=== PATIENT | male | born 1980 | race Caucasian/White ===

== ENCOUNTER 2023-10-12 15:55 | Emergency (ER) | payer BC, SELFPAY ==
--- NOTE | 2023-10-12 16:00 | DI.RAD_ITS ---
Exam(s) XR KNEE LT 3V AP,LAT,KWESI EXAM: XR KNEE LT 3V AP,LAT,KWESI CLINICAL HISTORY: pain. TECHNIQUE: 2D digital imaging was performed. COMPARISON: No exams were available for comparison FINDINGS: 3 views No evidence of acute fracture or prominent joint effusion. Bone density normal. No osseous lesions nor obvious degenerative changes. IMPRESSION: No acute osseous findings in the knee. DATA REPOSITORY: RADIATION DOSE DELIVERED:
--- NOTE | 2023-10-12 16:00 | DI.RAD_ITS ---
Exam(s) XR TIB/FIB LT EXAM: XR TIB/FIB LT CLINICAL HISTORY: pain. TECHNIQUE: 2D digital imaging was performed. COMPARISON: No exams were available for comparison FINDINGS: 3 views No evidence of acute fracture. Bone density normal. No osseous lesions. No radiopaque foreign bodi es. Please note that the most inferior tip of the lateral malleolus is not included in the field of view and if there is pain over this area then dedicated ankle images would be recommended. IMPRESSION: As above. DATA REPOSITORY: RADIATION DOSE DELIVERED:
[2023-10-12 16:02] VITALS: BP 197/103; PULSE 120; RESP 18; TEMP 37.5; O2SAT 94
[2023-10-12 16:10] VITALS: BP 197/103; PULSE 120; RESP 18; TEMP 37.5; O2SAT 94
--- NOTE | 2023-10-12 16:16 | W.ED.GENAD ---
Discharge Plan Disposition Patient Disposition: Home Condition: Stable Discharge Details Clinical Impression: Cellulitis of left leg Primary Care Provider: Jennifer Arreguin ED Provider: Daryl Newman Home Meds and New Rx's Prescriptions: New amoxicillin-pot clavulanate 875-125 mg tablet 1 tab PO BID Qty: 14 0RF Continued fluticasone propionate [Flonase Allergy Relief] 50 mcg/actuation spray,suspension 1 spray intranasal DAILY PRN Rx Instructions: administer into each nostril loratadine [Claritin] 10 mg tablet 10 mg PO DAILY PRN omeprazole magnesium [Prilosec OTC] 20 MG tablet,delayed release (DR/EC) 20 mg PO DAILY@0730 PRN Patient Comments: Pt took it a couple of days ago but doesn't take it often Discharge Instructions Additional Instructions: You have an infection of the skin of your left leg. Take the antibiotic as prescribed starting tomorrow morning Follow-up with your primary care provider within 1 week especially if not improving If you feel more ill, have severe worsening pain or your knee becomes red and swollen and painful with motion return to the emergency department for reevaluation HPI General Mode of arrival: ambulatory. Date/Time Provider Initiated Documentation: 10/12/23 15:58. Limitations to Documentation: no limitations. Information obtained by: patient. History of Present Illness 42 year old M presents to the emergency department with the chief complaint of Left leg wound, described as moderate, Patient started experiencing this day(s) (14) and it has been constant. No relieving factors improve symptom(s), No exacerbating factors reported . Patient notes fever/chills. Patient did receive the following treatments prior to arrival, none Related Data Home Medications Medication Instructions Recorded Confirmed omeprazole magnesium 20 mg 20 mg PO DAILY@0730 PRN 02/21/13 10/12/23 tablet,delayed release (Prilosec OTC) fluticasone propionate 50 1 spray intranasal DAILY PRN 01/11/23 10/12/23 mcg/actuation nasal spray,suspension (Flonase Allergy Relief) loratadine 10 mg tablet (Claritin) 10 mg PO DAILY PRN 01/11/23 10/12/23 amoxicillin 875 mg-potassium 1 tab PO BID #14 tabs 10/12/23 clavulanate 125 mg tablet Previous Rx's Medication Instructions Recorded amoxicillin 875 mg-potassium 1 tab PO BID #14 tabs 10/12/23 clavulanate 125 mg tablet Allergies Allergy/AdvReac Type Severity Reaction Status Date / Time aspirin Allergy Unknown unknown Unverified 10/12/23 16:07 General Stated Complaint: Cellulitis SHAHIDA: 3 Review of Systems All systems reviewed & are unremarkable except as noted in HPI and below Constitutional Constitutional: Denies chills, Reports fever(s) and Denies weakness Cardiovascular Cardiovascular: Denies chest pain and Denies dyspnea Respiratory Respiratory: Denies cough and Denies dyspnea Gastrointestinal Gastrointestinal: Denies abdominal pain, Denies nausea and Denies vomiting Musculoskeletal Musculoskeletal: Denies joint swelling Integumentary/Breasts Skin/Breast: Reports erythema Neurologic Neurologic: Denies weakness Exam Const General: no acute distress Orientation: alert HENMT Head: normal to inspection Ears: external ears normal General nose exam: external nose normal Mouth: moist mucous membranes Eyes General: appearance normal, both eyes and all related structures Neck Neck: normal visual inspection Resp Effort & Inspection: normal respiratory effort and able to speak in complete sentences Cardio Rate: regular rate Skin General skin exam: erythema Neuro General: patient alert and patient oriented x3 Extrem General: full ROM and capillary refill normal Psych Mental Status: mental status grossly normal Course Vital Signs Vital signs: Vital Signs Temperature 37.5 C 10/12/23 16:02 Pulse 120 H 10/12/23 16:02 Respiratory Rate 18 10/12/23 16:02 Blood Pressure 197/103 H 10/12/23 16:02 Pulse Oximetry 94 10/12/23 16:02 Temperature 37.5 C 10/12/23 16:10 Temperature Source Skin 10/12/23 16:10 Pulse 120 H 10/12/23 16:10 Respiratory Rate 18 10/12/23 16:10 Respiratory Effort Normal, Non-Labored 10/12/23 16:07 Blood Pressure 197/103 H 10/12/23 16:10 Blood Pressure Position Sitting 10/12/23 16:10 Pulse Oximetry 94 10/12/23 16:10 Oxygen Delivery Method Room Air 10/12/23 16:10 Oxygen Flow Rate 0 10/12/23 16:10 Medical Decision Making 42-year-old male comes in with left leg redness and pain. He says 2 weeks ago he sustained a wound on the anterior left mid tibia after he cut it on an unknown object. Has any IV drug use, states the pain started yesterday, and today had a fever of 103 so came here after taking Tylenol. He is in no distress on exam speaking clearly alert oriented x 4. He has a 1 cm open wound on the left mid tibia with no current drainage, there is erythema extending proximally from the wound approximately 4 to 5 cm. There is no fluctuance, no crepitus he has full range of motion of the knee and foot with intact sensation. There is no redness of the knee itself. Suspect cellulitis, will obtain CBC, CMP, lactate, procalcitonin and obtain x-rays of the knee and tib-fib, though concern for necrotizing fascitits versus septic joint is very low based on exam. Labs show white count of 13, unremarkable CMP, lactate negative, procalcitonin is 0.8. X-ray is unremarkable, no effusion of the knee. Patient is stable and feels well, discussed admission versus discharge with outpatient follow-up and he prefers this, given stable vital signs feels it is reasonable. He was given strict return precautions. Differential Diagnosis Differential Diagnosis: Cellulitis, sepsis Imaging Data Radiologic Study: Attestation: I personally reviewed and interpreted this imaging study as follows: Imaging: X-Ray Radiologist's impression: No acute findings on tib-fib x-ray Radiologic Study #2: Attestation: I personally reviewed and interpreted this imaging study as follows: Imaging: X-Ray Radiologist's impression: No acute findings on the knee x-ray Lab Data Lab results reviewed: Yes I reviewed the patient's lab results. Quality:SDOH Health Related Social Needs: No Data to Display PFSH All Active Problems (Updated 10/12/23 @ 18:11 by Daryl Newman MD) Cellulitis of left leg (Acute) Elevated blood pressure reading in office without diagnosis of hypertension (Acute) Family History (Updated 01/11/23 @ 10:32 by Jennifer Arreguin NP) Mother Personal history of malignant neoplasm PANCREATIC Father Alcohol use disorder Passed at age 61 Grandmother Personal history of malignant neoplasm PANCREATIC Stroke Social History (Updated 01/12/23 @ 12:46 by Tiffany Waller) Smoking/Tobacco Use Status: Former Tobacco Use tobacco type: smokeless tobacco Tobacco: How many years used: 15 Smokeless tobacco user: chewing tobacco Quit status: has quit before Second Hand Exposure: Yes Smoking risk assessment performed?: Yes Alcohol Intake: current Alcohol Intake frequency: a few times a week Alcohol type: beer Drug use: Never Household members: spouse and children Pets and animals: Yes Pets and animals: dog(s) and other Do you think of yourself as: straight/heterosexual Current gender identity: male What is your relationship status?: How often do you talk on the phone with friends or family?: once per week How often do you get together with friends or relatives?: twice per week Do you belong to any clubs or organized social groups?: yes Panel score (0-1 are the most socially isolated patients): 3 What type of physical activity do you participate in: other 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
[2023-10-12 16:33] LABS: Lactate 1.2 mmol/L (0.6-1.4)
[2023-10-12 16:34] LABS: Abs Immature Grans 0.06 10^3/uL (0.0-0.06); Basophils % 0.1; HCT 43.5 % (40.0-50.0); HGB 15.2 g/dL (13.5-17.5); Immature Grans % 0.4; Lymphocytes % 4.9; MCH 30.6 pg (27.0-33.0); MCHC 34.9 % (32.0-36.0); MCV 88 fL (80-95); MPV 9.1 fL (8.0-11.0); Monocytes % 5.5; Neutrophils % 89.1; Platelet Count 194 10^3/uL (130-400); RBC 4.97 10^6/uL (4.36-5.78); RDW 12.2 % (11.8-14.1); RDW-SD 39.2 fL; WBC 13.54 10^3/uL (4.4-10.8)
[2023-10-12] MEDS: Normal Saline 1,000 ML 1000 ML IV (16:35)
[2023-10-12] MEDS: cefTRIAXone 2 GM/50 ML BAG IVPB (16:38)
[2023-10-12 16:39] LABS: Absolute Basophil Count 0.01 10^3/uL (0.0-0.2); Absolute Lymphocyte Count 0.66 10^3/uL (1.2-3.4); Absolute Monocyte Count 0.74 10^3/uL (0.1-0.8); Absolute Neutrophil Count 12.06 10^3/uL (1.2-6.7)
[2023-10-12 16:51] LABS: ALT 53 U/L (16-63); AST 22 U/L (15-37); Albumin 3.7 g/dL (3.4-5.0); Alkaline Phosphatase 62 U/L (46-116); Anion Gap 11.5 mmol/L (3-11); BUN 13 mg/dL (7-18); Bilirubin, Total 1.7 mg/dL (0.2-1.0); CO2 24.5 mmol/L (21.0-32.0); Calcium 9.2 mg/dL (8.5-10.1); Chloride 100 mmol/L (98-107); Estimated GFR 95.77 (mL/min/1.73m2); Glucose 111 mg/dL (74-106); Magnesium 1.8 mg/dL (1.8-2.4); Potassium 3.7 mmol/L (3.5-5.1); Sodium 136 mmol/L (136-145); Total Protein 7.7 g/dL (6.4-8.2)
[2023-10-12 17:14] VITALS: TEMP 37.7
[2023-10-12 17:19] LABS: Procalcitonin 0.8 ng/mL
[2023-10-12 17:35] VITALS: BP 141/79; PULSE 92; O2SAT 93
[2023-10-12 18:20] VITALS: BP 138/75; PULSE 90; RESP 15; O2SAT 99
== END 2023-10-12 18:25 | disposition home or self-care (01) ==
PROVIDERS: Emergency Provider Emergency Medicine; PCP Nurse Practitioner Family
DX: M25.562 Pain in left knee; W26.9XXA Contact with unspecified sharp object(s), initial encounter; L03.116 Cellulitis of left lower limb
CPT/HCPCS: 36415; 73562; 80053; 84145; 96365; 99284; 73590; 83605; 83735; 85025; 99283; J0696

== ENCOUNTER 2023-10-17 15:37 | Emergency (ER) | payer BC, SELFPAY ==
[2023-10-17] VITALS (8 sets, daily range): BP systolic 129–144; BP diastolic 72–83; PULSE 72–88; RESP 16–18; TEMP 36.4–37.7; O2SAT 94–97
[2023-10-17 17:23] LABS: Abs Immature Grans 0.15 10^3/uL (0.0-0.06); Absolute Eosinophil Count 0.14 10^3/uL (0.0-0.7); Absolute Lymphocyte Count 1.67 10^3/uL (1.2-3.4); Absolute Monocyte Count 1.03 10^3/uL (0.1-0.8); Basophils % 0.3; Eosinophils % 1.2; HCT 44.4 % (40.0-50.0); HGB 15.5 g/dL (13.5-17.5); Immature Grans % 1.3; Lymphocytes % 14.3; MCH 30.3 pg (27.0-33.0); MCHC 34.9 % (32.0-36.0); MCV 87 fL (80-95); MPV 8.6 fL (8.0-11.0); Monocytes % 8.8; Neutrophils % 74.1; Platelet Count 344 10^3/uL (130-400); RBC 5.11 10^6/uL (4.36-5.78); RDW 11.8 % (11.8-14.1); RDW-SD 37.9 fL; WBC 11.66 10^3/uL (4.4-10.8)
[2023-10-17 17:24] LABS: Absolute Basophil Count 0.03 10^3/uL (0.0-0.2); Absolute Neutrophil Count 8.64 10^3/uL (1.2-6.7)
[2023-10-17] MEDS: Normal Saline 1,000 ML 1000 ML IV (17:25)
[2023-10-17 17:38] LABS: ALT 75 U/L (16-63); AST 35 U/L (15-37); Albumin 3.5 g/dL (3.4-5.0); Alkaline Phosphatase 70 U/L (46-116); Anion Gap 8.9 mmol/L (3-11); BUN 14 mg/dL (7-18); Bilirubin, Total 0.8 mg/dL (0.2-1.0); CO2 27.1 mmol/L (21.0-32.0); CREATININE 0.9 mg/dL (0.70-1.30); Calcium 9.7 mg/dL (8.5-10.1); Chloride 102 mmol/L (98-107); Estimated GFR 108.68 (mL/min/1.73m2); Glucose 93 mg/dL (74-106); Potassium 3.9 mmol/L (3.5-5.1); Sodium 138 mmol/L (136-145); Total Protein 8.7 g/dL (6.4-8.2)
--- NOTE | 2023-10-17 17:42 | W.ED.GENAD ---
Discharge Plan Disposition Patient Disposition: Home Condition: Stable Discharge Details Clinical Impression: Cellulitis of left lower extremity Primary Care Provider: Jennifer Arreguin ED Provider: Jhonny Lerner Home Meds and New Rx's Prescriptions: New clindamycin HCl 300 mg capsule 300 mg PO QID 7 Days Qty: 28 0RF No Action fluticasone propionate [Flonase Allergy Relief] 50 mcg/actuation spray,suspension 1 spray intranasal DAILY PRN Rx Instructions: administer into each nostril loratadine [Claritin] 10 mg tablet 10 mg PO DAILY PRN omeprazole magnesium [Prilosec OTC] 20 MG tablet,delayed release (DR/EC) 20 mg PO DAILY@0730 PRN Patient Comments: Pt took it a couple of days ago but doesn't take it often amoxicillin-pot clavulanate 875-125 mg tablet 1 tab PO BID Qty: 14 0RF Discharge Instructions Instructions: Cellulitis (ED) Additional Instructions: Please return to the emerged part for any worsening symptoms. HPI General Date/Time Provider Initiated Documentation: 10/17/23 15:57. HPI Narrative: 42-year-old male presents with worsening cellulitis of his left lower extremity, over 1 week ago nicked his left salgado on a piece of equipment. Was started on antibiotic several days ago, worsening redness has also experienced fevers and chills. Related Data Home Medications Medication Instructions Recorded Confirmed omeprazole magnesium 20 mg 20 mg PO DAILY@0730 PRN 02/21/13 10/17/23 tablet,delayed release (Prilosec OTC) fluticasone propionate 50 1 spray intranasal DAILY PRN 01/11/23 10/17/23 mcg/actuation nasal spray,suspension (Flonase Allergy Relief) loratadine 10 mg tablet (Claritin) 10 mg PO DAILY PRN 01/11/23 10/17/23 amoxicillin 875 mg-potassium 1 tab PO BID #14 tabs 10/12/23 10/17/23 clavulanate 125 mg tablet clindamycin HCl 300 mg capsule 300 mg PO QID 7 days #28 caps 10/17/23 Previous Rx's Medication Instructions Recorded amoxicillin 875 mg-potassium 1 tab PO BID #14 tabs 10/12/23 clavulanate 125 mg tablet clindamycin HCl 300 mg capsule 300 mg PO QID 7 days #28 caps 10/17/23 Allergies Allergy/AdvReac Type Severity Reaction Status Date / Time aspirin Allergy Unknown unknown Unverified 10/17/23 15:39 General Stated Complaint: Cellulitis SHAHIDA: 3 Review of Systems Narrative: Review of Systems Constitutional: negative Eyes: negative ENT: negative Cardiovascular: negative Respiratory: negative Gastrointestinal: negative : negative Musculoskeletal: negative Skin: Lower extremity cellulitis Neurologic: negative Psych: negative Exam Narrative Exam Narrative: Physical Examination General: alert, awake, cooperative, resting comfortably, no acute distress HEENT: normocephalic, atraumatic; PERRL, EOM intact, conjunctiva normal; no nasal discharge; moist mucous membranes, oral and pharyngeal mucosa normal, tolerating secretions Neck: supple, trachea midline; full ROM Chest: normal to inspection Respiratory: normal respiratory effort, speaking in full sentences, clear to auscultation, no wheezing, rales or rhonchi Cardiac: regular rate, regular rhythm, S1S2 intact, no murmurs rubs or gallops GI: abdomen soft, non-tender, non-distended; no palpable mass or hepatosplenomegaly Skin: Large area of erythema and induration left lower extremity involving anterior salgado extending up medial aspect of left thigh, no crepitus no bulla, no fluctuance appreciated, appears to be stemming from anterior salgado skin deformity subacute in nature Neuro: AAOx3, normal speech, moving all extremities Extremities: See skin Psych: Appropriate mood and affect Course Vital Signs Vital signs: Vital Signs Temperature 36.4 C L 10/17/23 15:42 Pulse 88 10/17/23 15:42 Respiratory Rate 16 10/17/23 15:42 Blood Pressure 139/72 10/17/23 15:42 Pulse Oximetry 97 10/17/23 15:42 Temperature 36.4 C L 10/17/23 15:42 Temperature Source Temporal Artery Scan 10/17/23 15:42 Pulse 88 10/17/23 15:42 Respiratory Rate 16 10/17/23 15:42 Respiratory Effort Normal, Non-Labored 10/17/23 15:44 Blood Pressure 139/72 10/17/23 15:42 Blood Pressure Position Sitting 10/17/23 15:42 Pulse Oximetry 97 10/17/23 15:42 Oxygen Delivery Method Room Air 10/17/23 15:42 Oxygen Flow Rate 0 10/17/23 15:42 Pain Level 9 10/17/23 15:42 Lab/Test Results Lab/Test Results: 10/17/23 17:17 Blood Blood Culture - Pending 10/17/23 17:07 Blood Blood Culture - Pending Laboratory Tests Range/Units 10/17/23 17:17 WBC (4.4-10.8) 10^3/uL 11.66 H RBC (4.36-5.78) 10^6/uL 5.11 Hgb (13.5-17.5) g/dL 15.5 Hct (40.0-50.0) % 44.4 MCV (80-95) fL 87 MCH (27.0-33.0) pg 30.3 MCHC (32.0-36.0) % 34.9 RDW (11.8-14.1) % 11.8 Plt Count (130-400) 10^3/uL 344 MPV (8.0-11.0) fL 8.6 Immature Gran % 1.3 Neutrophils % 74.1 Lymphocytes % 14.3 Monocytes % 8.8 Eosinophils % 1.2 Basophils % 0.3 Nucleated RBC % (0.0-0.3) % 0.0 Absolute Neutrophils (1.2-6.7) 10^3/uL 8.64 H Absolute Lymphocytes (1.2-3.4) 10^3/uL 1.67 Absolute Monocytes (0.1-0.8) 10^3/uL 1.03 H Absolute Eosinophils (0.0-0.7) 10^3/uL 0.14 Absolute Basophils (0.0-0.2) 10^3/uL 0.03 Sodium (136-145) mmol/L 138 Potassium (3.5-5.1) mmol/L 3.9 Chloride (98-107) mmol/L 102 Carbon Dioxide (21.0-32.0) mmol/L 27.1 Anion Gap (3-11) mmol/L 8.9 BUN (7-18) mg/dL 14 Creatinine (0.70-1.30) mg/dL 0.9 Est GFR (CKD-EPI 2020) (mL/min/1.73m2) 108.68 Glucose (74-106) mg/dL 93 Calcium (8.5-10.1) mg/dL 9.7 Total Bilirubin (0.2-1.0) mg/dL 0.8 AST (15-37) U/L 35 ALT (16-63) U/L 75 H Alkaline Phosphatase (46-116) U/L 70 Total Protein (6.4-8.2) g/dL 8.7 H Albumin (3.4-5.0) g/dL 3.5 Medical Decision Making 42-year-old male presents with worsening cellulitis of left lower extremity, stemming from skin abrasion anterior left thigh that he sustained over 1 week ago, started on antibiotics approximately 5 days ago, despite antibiotic adherence worsening induration erythema and now subjective fevers and chills. Nontoxic resting comfortably no acute distress hemodynamically stable. Exam consistent with worsening cellulitis no evidence of fluctuance bulla or crepitus to suggest deep space infection or necrotizing infection. Will adjust antibiotics to include MRSA coverage will start patient on clindamycin will obtain basic labs blood cultures will administer fluids analgesia close reassessment. Consider transitioning to p.o. clindamycin for home. 18: 55 patient was comfortably no acute distress. No extension of cellulitis during stay. Hemodynamically stable. Patient be transition to clindamycin p.o. Strict return precautions given. Quality:SDOH Health Related Social Needs: No Data to Display PFSH All Active Problems (Updated 10/17/23 @ 18:56 by Jhonny Lerner MD) Cellulitis of left lower extremity (Acute) Cellulitis of left leg (Acute) Elevated blood pressure reading in office without diagnosis of hypertension (Acute) Family History (Updated 01/11/23 @ 10:32 by Jennifer Arreguin NP) Mother Personal history of malignant neoplasm PANCREATIC Father Alcohol use disorder Passed at age 61 Grandmother Personal history of malignant neoplasm PANCREATIC Stroke Social History (Updated 01/12/23 @ 12:46 by Tiffany Waller) Smoking/Tobacco Use Status: Former Tobacco Use tobacco type: smokeless tobacco Tobacco: How many years used: 15 Smokeless tobacco user: chewing tobacco Quit status: has quit before Second Hand Exposure: Yes Smoking risk assessment performed?: Yes Alcohol Intake: current Alcohol Intake frequency: a few times a week Alcohol type: beer Drug use: Never Household members: spouse and children Housing: house Pets and animals: Yes Pets and animals: dog(s) and other Do you think of yourself as: straight/heterosexual Current gender identity: male What is your relationship status?: How often do you talk on the phone with friends or family?: once per week How often do you get together with friends or relatives?: twice per week Do you belong to any clubs or organized social groups?: yes Panel score (0-1 are the most socially isolated patients): 3 What type of physical activity do you participate in: other 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
[2023-10-17] MEDS: ACETAMINOPHEN 1,000 MG/100 ML BTL 400 MG IVPB (18:26)
[2023-10-17] MEDS: CLINDAMYCIN 600 MG/50 ML BAG 100 MG IVPB (18:53)
== END 2023-10-17 19:23 | disposition home or self-care (01) ==
PROVIDERS: Emergency Provider Emergency Medicine; PCP Nurse Practitioner Family
DX: L03.116 Cellulitis of left lower limb (principal); R50.9 Fever, unspecified
CPT/HCPCS: 36415; 80053; 87040; 96361; 96365; 96367; 99284; 85025; 99283; J0131; J0737

== ENCOUNTER 2023-10-19 11:44 | Emergency (ER) | payer BC, SELFPAY ==
[2023-10-19 11:54] VITALS: BP 126/76; PULSE 86; RESP 18; TEMP 36.6; O2SAT 97
--- NOTE | 2023-10-19 12:19 | ED.GENADUL_ITS ---
Discharge Plan Disposition Patient Disposition: Home Condition: Good Discharge Details Chief Complaint: Cellulitis Clinical Impression: Cellulitis of left leg Primary Care Provider: Jennifer Arreguin ED Provider: Kevin Ramos Home Meds and New Rx's Prescriptions: No Action fluticasone propionate [Flonase Allergy Relief] 50 mcg/actuation spray,suspension 1 spray intranasal DAILY PRN Rx Instructions: administer into each nostril loratadine [Claritin] 10 mg tablet 10 mg PO DAILY PRN omeprazole magnesium [Prilosec OTC] 20 MG tablet,delayed release (DR/EC) 20 mg PO DAILY@0730 PRN Patient Comments: Pt took it a couple of days ago but doesn't take it often amoxicillin-pot clavulanate 875-125 mg tablet 1 tab PO BID Qty: 14 0RF clindamycin HCl 300 mg capsule 300 mg PO QID 7 Days Qty: 28 0RF Discharge Instructions Instructions: Cellulitis (ED) Additional Instructions: At this time your blood work has returned stable. Your white blood cell count is better than it was before. Your other inflammatory markers are stable. Your bedside ultrasound did not show evidence of abscess or blood clot. Please continue to take the clindamycin as prescribed. Please come back in 48 hours for recheck. If you notice any worsening of your symptoms, or any new symptoms such as vomiting, diarrhea, fever, chills, shortness of breath, chest pain, numbness, weakness, or fainting , please return immediately to the emergency department for reevaluation. Please follow up with your primary care provider as soon as possible for reassessment and reevaluation. As always, it was a pleasure participating in your medical care today. Referrals: Jennifer Arreguin NP [Primary Care Provider] - [facility] General Date/Time Provider Initiated Documentation: 10/19/23 11:53 . [facility] Narrative: This is a very pleasant 42-year-old male with no significant past medical history who presents today for left leg infection recheck. Patient states that about 7 days ago he was wearing pants when some metal on the outside of his pants scraped up against his salgado. There was no actual direct contact of metal with the skin. He developed some mild redness, and was started on Augmentin for 5 days, unfortunately the redness notably spread, then 2 days ago he was seen for recheck secondary to the spreading redness and was started on clindamycin. Laboratory workup at that time demonstrated normal blood cultures, minimal white count of 11, and a negative x-ray. Patient has been on 300 mg of clindamycin every 6 hours for the last day and a half, and has noticed a slight improvement in some areas, and no improvement in others. He came in for recheck as previously recommended. He denies any chills. He did have a temperature of 100.0 a day or so ago. He denies any vomiting or diarrhea. With NSAID therapy. No diabetes or tingling. No history of diabetes. No other complaints at this time. No history of HIV. No history of previous IV drug use. Related Data Home Medications Medication Instructions Recorded Confirmed omeprazole magnesium 20 mg 20 mg PO DAILY@0730 PRN 02/21/13 10/17/23 tablet,delayed release (Prilosec OTC) fluticasone propionate 50 1 spray intranasal DAILY PRN 01/11/23 10/17/23 mcg/actuation nasal spray,suspension (Flonase Allergy Relief) loratadine 10 mg tablet (Claritin) 10 mg PO DAILY PRN 01/11/23 10/17/23 amoxicillin 875 mg-potassium 1 tab PO BID #14 tabs 10/12/23 10/17/23 clavulanate 125 mg tablet clindamycin HCl 300 mg capsule 300 mg PO QID 7 days #28 caps 10/17/23 Previous Rx's Medication Instructions Recorded amoxicillin 875 mg-potassium 1 tab PO BID #14 tabs 10/12/23 clavulanate 125 mg tablet clindamycin HCl 300 mg capsule 300 mg PO QID 7 days #28 caps 10/17/23 Allergies Allergy/AdvReac Type Severity Reaction Status Date / Time aspirin Allergy Unknown unknown Unverified 10/19/23 11:58 General Stated Complaint: Cellulitis SHAHIDA: 3 Review of Systems All systems reviewed & are unremarkable except as noted in HPI and below Exam Narrative Exam Narrative: 1.Const: Well-nourished, Well-developed, appearing stated age 2.Eyes: PERRL, no conjunctival injection, and symmetrical lids. 3.ENT: Atraumatic external nose and ears. Moist MM. Neck: Symmetric, trachea midline, No thyromegaly. 4.CVS: +S1/S2, No murmurs or gallops. Peripheral pulses 2+ and equal in all extremities. Brisk capillary refill in all extremities. 5.RESP: Unlabored respiratory effort. Clear to auscultation bilaterally. No wheezes rales or rhonchi 6.GI: Soft, Nontender/Nondistended, No hepatosplenomegaly. No guarding or rebound. 7.MSK: Left salgado demonstrates initial abrasion site in the mid to distal salgado. Erythema extends around that laterally by about 6 cm, distally by about 5 cm and proximally about 20 cm. It then transitions to a red erythematous hard area on the medial aspect of the knee, but not in the knee joint itself. All of this is marked with a marking pen from the prior visit. No fluctuance. Mild warmth in the left compared to the right. No significant posterior calf tenderness. No thigh tenderness. Dorsalis pedis posterior tibial pulse +2 bilaterally. No subcutaneous crepitus. No fluctuance, bulla, or skin sloughing. 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 Sensation grossly intact, no focal neurologic deficits. 10.Psych: (AAO) x3. Appropriate mood and affect Course Vital Signs Vital signs: Vital Signs Temperature 36.6 C 10/19/23 11:54 Pulse 86 10/19/23 11:54 Respiratory Rate 18 10/19/23 11:54 Blood Pressure 126/76 10/19/23 11:54 Pulse Oximetry 97 10/19/23 11:54 Temperature 36.6 C 10/19/23 11:54 Temperature Source Skin 10/19/23 11:54 Pulse 86 10/19/23 11:54 Respiratory Rate 18 10/19/23 11:54 Respiratory Effort Normal 10/19/23 11:56 Blood Pressure 126/76 10/19/23 11:54 Blood Pressure Position Sitting 10/19/23 11:54 Pulse Oximetry 97 10/19/23 11:54 Oxygen Delivery Method Room Air 10/19/23 11:54 Oxygen Flow Rate 0 10/19/23 11:54 Medical Decision Making This is a very pleasant 42-year-old male with no significant past medical history who presents today for left leg infection recheck. Patient states that about 7 days ago he was wearing pants when some metal on the outside of his pants scraped up against his salgado. There was no actual direct contact of metal with the skin. He developed some mild redness, and was started on Augmentin for 5 days, unfortunately the redness notably spread, then 2 days ago he was seen for recheck secondary to the spreading redness and was started on clindamycin. Laboratory workup at that time demonstrated normal blood cultures, minimal white count of 11, and a negative x-ray. Patient has been on 300 mg of clindamycin every 6 hours for the last day and a half, and has noticed a slight improvement in some areas, and no improvement in others. He came in for recheck as previously recommended. He denies any chills. He did have a temperature of 100.0 a day or so ago. He denies any vomiting or diarrhea. With NSAID therapy. No diabetes or tingling. No history of diabetes. No other complaints at this time. No history of HIV. No history of previous IV drug use. Physical exam demonstrates well-appearing male, no fever, no tachycardia, no hypotension. Left leg appears to demonstrate stability and in some areas improvement of the erythema compared to prior visit that was marked out with marking pen. Bedside ultrasound was performed of the erythematous and edematous areas on the salgado and the medial aspect of the proximal leg by the knee, no evidence of DVT, good compression, no abscess. I suspect that the patient's stability is secondary to the new antibiotic use, as there is not any significant worsening I do not see evidence for IV vancomycin and inpatient admission. Family is concerned and rightfully so. We will get labs to compare from prior visit to see if there have been any improvements or changes in the white count, we will give a dose of his clindamycin IV here while he is here. Will continue to monitor closely and reassess. No evidence of gangrene, necrotizing fasciitis, or other concerning etiology in that regard. 1:33 PM White count is normal and the best that it has been on all of his visits. Procalcitonin is normal. Likelihood of sepsis is notably low. Clinically he shows no evidence of sepsis or septic shock. Patient demonstrates good healing stability. Antibiotics have been administered. Vital signs stable. At this time with no evidence of significant systemic infection, with blood cultures being negative, and with his current medical stability I do feel that discharge is stable. Will recommend prompt return in 48 hours for recheck. I have extensively reviewed the treatment plan and discharge instructions with the patient and their family. I have addressed all patient concerns at this time. The patient and family was made aware of what symptoms to monitor for that would warrant a return to the emergency department. Discussed the plan with the patient and family, they demonstrate verbal understanding and agreement with our assessment and plan at this time. The documentation in this chart was dictated using [employer] dictation software. Please excuse any dictation errors. Quality:SDOH Health Related Social Needs: No Data to Display PFSH All Active Problems (Updated 10/19/23 @ 13:33 by Kevin Ramos DO) Cellulitis of left leg (Acute) Cellulitis of left lower extremity (Acute) Cellulitis of left leg (Acute) Elevated blood pressure reading in office without diagnosis of hypertension (Acute) Family History Mother Personal history of malignant neoplasm PANCREATIC Father Alcohol use disorder Passed at age 61 Grandmother Personal history of malignant neoplasm PANCREATIC Stroke Social History Smoking/Tobacco Use Status: Former Tobacco Use tobacco type: smokeless tobacco Tobacco: How many years used: 15 Smokeless tobacco user: chewing tobacco Quit status: has quit before Second Hand Exposure: Yes Smoking risk assessment performed?: Yes Alcohol Intake: current Alcohol Intake frequency: a few times a week Alcohol type: beer Drug use: Never Household members: spouse and children Housing: house Pets and animals: Yes Pets and animals: dog(s) and other Do you think of yourself as: straight/heterosexual Current gender identity: male What is your relationship status?: How often do you talk on the phone with friends or family?: once per week How often do you get together with friends or relatives?: twice per week Do you belong to any clubs or organized social groups?: yes Panel score (0-1 are the most socially isolated patients): 3 What type of physical activity do you participate in: 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 Exam Complete
[2023-10-19 12:32] LABS: Lactate 1.9 mmol/L (0.6-1.4)
[2023-10-19 12:33] LABS: Abs Immature Grans 0.15 10^3/uL (0.0-0.06); Absolute Basophil Count 0.04 10^3/uL (0.0-0.2); Absolute Eosinophil Count 0.11 10^3/uL (0.0-0.7); Absolute Lymphocyte Count 1.17 10^3/uL (1.2-3.4); Absolute Monocyte Count 0.74 10^3/uL (0.1-0.8); Absolute Neutrophil Count 8.59 10^3/uL (1.2-6.7); Basophils % 0.4 %; HCT 42.6 % (40.0-50.0); HGB 14.9 g/dL (13.5-17.5); Immature Grans % 1.4 %; Lymphocytes % 10.8 %; MCH 30.7 pg (27.0-33.0); MCV 88 fL (80-95); MPV 8.7 fL (8.0-11.0); Monocytes % 6.9 %; Neutrophils % 79.5 %; Platelet Count 431 10^3/uL (130-400); RBC 4.85 10^6/uL (4.36-5.78); RDW 11.6 % (11.8-14.1); RDW-SD 37.4 fL
[2023-10-19] MEDS: CLINDAMYCIN 600 MG/50 ML BAG 100 MG IVPB (12:37)
[2023-10-19] MEDS: Ketorolac 15 MG/ML VIAL IVP (12:38)
[2023-10-19] MEDS: Normal Saline 1,000 ML 1000 ML IV (13:02)
[2023-10-19 13:30] LABS: Procalcitonin < 0.1 ng/mL
[2023-10-19 13:48] VITALS: BP 126/76; PULSE 72; RESP 18; TEMP 36.6; O2SAT 98
== END 2023-10-19 13:50 | disposition home or self-care (01) ==
PROVIDERS: Emergency Provider Student in an Organized Health Care Education/Training Program; PCP Nurse Practitioner Family
DX: L03.116 Cellulitis of left lower limb (principal); Z87.891 Personal history of nicotine dependence
CPT/HCPCS: 76882; 84145; 96361; 96365; 96375; 99284; 83605; 85025; J0737; J1885

== ENCOUNTER 2023-10-20 21:20 | Inpatient (IN) | payer BC, SELFPAY ==
[2023-10-20 21:23] VITALS: BP 134/85; PULSE 83; RESP 18; O2SAT 98
[2023-10-20 22:18] LABS: Absolute Basophil Count 0.04 10^3/uL (0.0-0.2); Absolute Eosinophil Count 0.14 10^3/uL (0.0-0.7); Absolute Monocyte Count 1.03 10^3/uL (0.1-0.8); Basophils % 0.3 %; Eosinophils % 1.2 %; HCT 38.7 % (40.0-50.0); HGB 13.5 g/dL (13.5-17.5); Immature Grans % 0.9 %; Lymphocytes % 15.6 %; MCH 30.9 pg (27.0-33.0); MCHC 34.9 % (32.0-36.0); MCV 89 fL (80-95); MPV 8.5 fL (8.0-11.0); Monocytes % 8.8 %; Neutrophils % 73.2 %; Platelet Count 473 10^3/uL (130-400); RBC 4.37 10^6/uL (4.36-5.78); RDW 11.6 % (11.8-14.1); RDW-SD 37.1 fL
[2023-10-20 22:20] LABS: Absolute Lymphocyte Count 1.83 10^3/uL (1.2-3.4); Absolute Neutrophil Count 8.56 10^3/uL (1.2-6.7)
[2023-10-20 22:21] LABS: ESR 50 mm/hr (0-15)
[2023-10-20] MEDS: Ketorolac 15 MG/ML VIAL IVP (22:25)
--- NOTE | 2023-10-20 22:30 | DI.CT_ITS ---
Exam(s) CT LOWER EXTREMITY LT W EXAM: CT LOWER EXTREMITY LT W CLINICAL HISTORY: worsening cellulitis despite treatment. TECHNIQUE: Imaging Protocol: Axial computed tomography images with coronal and sagittal reformatted images were created and reviewed. CONTRAST MATERIAL: Intravenous: Omnipaque 350 Contrast volume:structured data in ml Contrast route:I V - COMPARISON: No exams were available for comparison FINDINGS: SOFT TISSUES: There is sheet-like subcutaneous fluid along the lateral aspect of the mid-lower left t high, extending into the knee and calf, this fluid abutting the outer aspect of the vastus lateralis muscle as well as the iliotibial band and lateral patellar retinaculum.. There is overlying skin thi ckening and as one progresses inferiorly this the cellulitis pattern also involves the posterior and posteromedial aspect of the lower thigh and calf. In the calf this circumferential pattern extends d own to the ankle level. There is no radiopaque foreign body. No ring enhancing distinct abscess. There no prominent knee joint effusion. OSSEOUS: No evidence of fractures nor osteomyelitis. IMPRESSION: Extensive cellulitis pattern as described above in the thigh and extending into the calf. No truly d rainable abscess. No evidence of osteomyelitis. RADIATION DOSE DELIVERED: 742.53mGy.cm Total DLP DATA REPOSITORY: All CT scans at this facility are submitted to the National Radiology Data Registry (NRDR) Dose Index Registry (DIR) with the [employer] (ACR). RADIATION OPTIMIZATION: All CT scans at this facility use at least one of these dose optimization te chniques: automated exposure control; mA and/or kV adjustment per patient size (includes targeted exa ms where dose is matched to clinical indication); or iterative reconstruction.
[2023-10-20 22:31] LABS: ALT 46 U/L (16-63); AST 14 U/L (15-37); Albumin 3.1 g/dL (3.4-5.0); Alkaline Phosphatase 63 U/L (46-116); Anion Gap 11.4 mmol/L (3-11); BUN 11 mg/dL (7-18); Bilirubin, Total 0.5 mg/dL (0.2-1.0); CO2 26.6 mmol/L (21.0-32.0); Calcium 9.4 mg/dL (8.5-10.1); Chloride 102 mmol/L (98-107); Estimated GFR 95.77 (mL/min/1.73m2); Glucose 116 mg/dL (74-106); Potassium 3.5 mmol/L (3.5-5.1); Sodium 140 mmol/L (136-145); Total Protein 7.7 g/dL (6.4-8.2)
--- NOTE | 2023-10-20 22:33 | ED.GENADUL_ITS ---
Discharge Plan Discharge Details Chief Complaint: Cellulitis Primary Care Provider: Jennifer Arreguin ED Provider: Lilia Willard Home Meds and New Rx's Prescriptions: No Action fluticasone propionate [Flonase Allergy Relief] 50 mcg/actuation spray,suspension 1 spray intranasal DAILY PRN Rx Instructions: administer into each nostril loratadine [Claritin] 10 mg tablet 10 mg PO DAILY PRN omeprazole magnesium [Prilosec OTC] 20 MG tablet,delayed release (DR/EC) 20 mg PO DAILY@0730 PRN Patient Comments: Pt took it a couple of days ago but doesn't take it often amoxicillin-pot clavulanate 875-125 mg tablet 1 tab PO BID Qty: 14 0RF Hold Instructions: Changed by Provider clindamycin HCl 300 mg capsule 300 mg PO QID 7 Days Qty: 28 0RF HPI General Date/Time Provider Initiated Documentation: 10/20/23 21:26 . HPI Narrative: Elder is a 42 year old male who presents to the emergency dept today for evaluation of worsening cellulitis on his L leg. He reports he started with pain to the posterior fossa of his L knee a week and a half ago with fevers followed by a shallow lesion on his anterior salgado. This progressed into lower leg erythema and swelling. Today he developed areas of swelling to the posterior knee and anterior salgado; on the way to the emergency department one of the abscesses behind his knee burst and drained bloody serous fluid. He was started on Augmentin 8 days ago, despite taking this as prescribed the swelling and redness became worse, extending up his thigh. 4 days ago he was started on clindamycin. Fevers have persisted, most recently 100 degrees yesterday; these are accompanied by general malaise, decreased energy level, and decreased appetite. He denies nausea/vomiting, abdominal pain, change in bowel or bladder function, distal numbness/tingling or limb weakness. No history of MRSA, IV drug use, treatment resistant infections, or immunocompromise. Related Data Home Medications Medication Instructions Recorded Confirmed omeprazole magnesium 20 mg 20 mg PO DAILY@0730 PRN 02/21/13 10/20/23 tablet,delayed release (Prilosec OTC) fluticasone propionate 50 1 spray intranasal DAILY PRN 01/11/23 10/20/23 mcg/actuation nasal spray,suspension (Flonase Allergy Relief) loratadine 10 mg tablet (Claritin) 10 mg PO DAILY PRN 01/11/23 10/20/23 amoxicillin 875 mg-potassium 1 tab PO BID #14 tabs 10/12/23 10/20/23 clavulanate 125 mg tablet clindamycin HCl 300 mg capsule 300 mg PO QID 7 days #28 caps 10/17/23 10/20/23 Previous Rx's Medication Instructions Recorded amoxicillin 875 mg-potassium 1 tab PO BID #14 tabs 10/12/23 clavulanate 125 mg tablet clindamycin HCl 300 mg capsule 300 mg PO QID 7 days #28 caps 10/17/23 Allergies Allergy/AdvReac Type Severity Reaction Status Date / Time aspirin Allergy Unknown unknown Unverified 10/19/23 11:58 General Stated Complaint: Cellulitis SHAHIDA: 3 Review of Systems Narrative: see HPI Exam Const General: cooperative, healthy appearing, comfortable, no acute distress, well developed and well groomed Extrem Right lower extremity: full ROM, normal capillary refill, edema, knee (two abscesses noted (quarter sized, one draining bloody serous fluid)) and lower leg Details: erythema, localized swelling, non-pitting edema and warmth Upper/lower leg/hip images: 2 1. 2. Course Vital Signs Vital signs: Vital Signs Pulse 83 10/20/23 21:23 Respiratory Rate 18 10/20/23 21:23 Blood Pressure 134/85 10/20/23 21:23 Pulse Oximetry 98 10/20/23 21:23 Pulse 83 10/20/23 21:23 Respiratory Rate 18 10/20/23 21:23 Respiratory Effort Normal, Non-Labored 10/20/23 21:35 Blood Pressure 134/85 10/20/23 21:23 Blood Pressure Position Sitting 10/20/23 21:23 Pulse Oximetry 98 10/20/23 21:23 Oxygen Delivery Method Room Air 10/20/23 21:23 Oxygen Flow Rate 0 10/20/23 21:23 Pain Level 4 10/20/23 21:23 Lab/Test Results Lab/Test Results: 10/20/23 21:30 Leg - Left Wound Culture - Pending 10/20/23 21:30 Leg - Left Gram Stain - Pending 10/20/23 22:08 Blood Blood Culture - Pending 10/20/23 22:08 Blood Blood Culture - Pending Laboratory Tests Range/Units 10/20/23 22:01 WBC (4.4-10.8) 10^3/uL 11.70 H RBC (4.36-5.78) 10^6/uL 4.37 Hgb (13.5-17.5) g/dL 13.5 Hct (40.0-50.0) % 38.7 L MCV (80-95) fL 89 MCH (27.0-33.0) pg 30.9 MCHC (32.0-36.0) % 34.9 RDW (11.8-14.1) % 11.6 L Plt Count (130-400) 10^3/uL 473 H MPV (8.0-11.0) fL 8.5 Immature Gran % % 0.9 Neutrophils % % 73.2 Lymphocytes % % 15.6 Monocytes % % 8.8 Eosinophils % % 1.2 Basophils % % 0.3 Nucleated RBC % (0.0-0.3) % 0.0 Absolute Neutrophils (1.2-6.7) 10^3/uL 8.56 H Absolute Lymphocytes (1.2-3.4) 10^3/uL 1.83 Absolute Monocytes (0.1-0.8) 10^3/uL 1.03 H Absolute Eosinophils (0.0-0.7) 10^3/uL 0.14 Absolute Basophils (0.0-0.2) 10^3/uL 0.04 ESR (0-15) mm/hr 50 H Medical Decision Making Medical Records Medical records narrative: Elder is a 42 year old male who presents to the emergency dept today for evaluation of worsening cellulitis on his L leg. He reports he started with pain to the posterior fossa of his L knee a week and a half ago with fevers followed by a shallow lesion on his anterior salgado. This progressed into lower leg erythema and swelling. Today he developed areas of swelling to the posterior knee and anterior salgado; on the way to the emergency department one of the abscesses behind his knee burst and drained bloody serous fluid. He was started on Augmentin 8 days ago, despite taking this as prescribed the swelling and redness became worse, extending up his thigh. 4 days ago he was started on clindamycin. Fevers have persisted, most recently 100 degrees yesterday; these are accompanied by general malaise, decreased energy level, and decreased appetite. He denies nausea/vomiting, abdominal pain, change in bowel or bladder function, distal numbness/tingling or limb weakness. No history of MRSA, IV drug use, treatment resistant infections, or immunocompromise. Physical exam remarkable for erythema and moderate edema extending from the lower leg at the ankle up to the mid thigh. No tenderness with palpation. This has extended beyond the markings from yesterday. There are quarter-sized fluctuant masses noted (2 behind knee, one to anterior salgado). +distal pulses. Full ROM to knee and ankle. DDx includes was not limited to treatment resistant cellulitis with abscess formation, necrotizing fasciitis I independently interpreted the following tests: CBC reassuring, mild leukocytosis with white cell count 11.7. CMP reassuring. Procalcitonin negative. Sed rate elevated at 50. Awaiting CT lower extremity for further evaluation. We did initiate IV antibiotics, vancomycin. Pain control was provided with Toradol and Dilaudid during wound care. Wound care provided by [facility] Handoff report given to Dr. Barrera. Quality:SDOH Health Related Social Needs: 2 No Data to Display PFSH All Active Problems (Updated 10/19/23 @ 13:33 by Kevin Ramos DO) Cellulitis of left leg (Acute) Cellulitis of left lower extremity (Acute) Cellulitis of left leg (Acute) Elevated blood pressure reading in office without diagnosis of hypertension (Acute) Family History Mother Personal history of malignant neoplasm PANCREATIC Father Alcohol use disorder Passed at age 61 Grandmother Personal history of malignant neoplasm PANCREATIC Stroke Social History Smoking/Tobacco Use Status: Former Tobacco Use tobacco type: smokeless tobacco Tobacco: How many years used: 15 Smokeless tobacco user: chewing tobacco Quit status: has quit before Second Hand Exposure: Yes Smoking risk assessment performed?: Yes Alcohol Intake: current Alcohol Intake frequency: a few times a week Alcohol type: beer Drug use: Never Household members: spouse and children Housing: house Pets and animals: Yes Pets and animals: dog(s) and other Do you think of yourself as: straight/heterosexual Current gender identity: male What is your relationship status?: How often do you talk on the phone with friends or family?: once per week How often do you get together with friends or relatives?: twice per week Do you belong to any clubs or organized social groups?: yes Panel score (0-1 are the most socially isolated patients): 3 What type of physical activity do you participate in: other 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 Labs all reassuring. Elevated inflammatory markers. Awaiting CT results. Currently receiving vancomycin. Admission anticipated Last updated by Lilia Willard at 10/20/23 23:33
[2023-10-20 22:42] LABS: C-Reactive Protein 6.85 mg/dL (<or=0.5)
[2023-10-20] MEDS: Normal Saline Flush 10 ML SYR IVP (23:01)
[2023-10-20] MEDS: Normal Saline - Diluent 50 ML VIAL IJ (23:02)
[2023-10-20] MEDS: Omnipaque 350 MG/ML 100 ML BTL IJ (23:04)
--- NOTE | 2023-10-20 23:31 | ED.PROG_ITS ---
Date of service: 10/20/23 Time of Service: 23:31 Medical Decision Making This patient was signed out to me. Please see previous notes for HPI and initial eval. In brief, 42yo M presenting with markedly worsening LE cellulitis despite outpatient antibiotics. Signed out pending CT scan, plan for admission medicine vs surgery pending results. CT independently reviewed, agree with radiology read below consistent with cellulitis. Labs reviewed; LRINEC score 0. Patient with significant pain with wound care. No palpable crepiptus and no pain with palpation earlier prior to assertive cleansing and dressing of wound. Clinically not consistent with nec fasc at this time though rapid progression is worrisome. Discussed with Dr. Arreola; accepted to medicine service and awaiting transfer to the floor. Imaging Data Radiologic Study: Imaging: CT Scan Radiologist's impression: IMPRESSION: Skin thickening and moderate ill-defined subcutaneous fluid throughout the left lateral lower thigh, knee and calf, suggesting cellulitis. No discrete drainable fluid collection or abscess. No evidence for osteomyelitis. The fluid tracks into deep subcutaneous tissues and is seen along the fascial plane of the vastus lateralis muscle and iliotibial band. Close clinical surveillance is suggested to exclude developing necrotizing fasciitis Lab Data Lab results reviewed: Yes I reviewed the patient's lab results. Labs: 10/20/23 21:30 Leg - Left Wound Culture - Pending 10/20/23 21:30 Leg - Left Gram Stain - Final 10/20/23 22:01 Blood Blood Culture - Pending 10/20/23 22:53 Blood Blood Culture - Pending Laboratory Tests Range/Units 10/20/23 22:01 WBC (4.4-10.8) 10^3/uL 11.70 H RBC (4.36-5.78) 10^6/uL 4.37 Hgb (13.5-17.5) g/dL 13.5 Hct (40.0-50.0) % 38.7 L MCV (80-95) fL 89 MCH (27.0-33.0) pg 30.9 MCHC (32.0-36.0) % 34.9 RDW (11.8-14.1) % 11.6 L Plt Count (130-400) 10^3/uL 473 H MPV (8.0-11.0) fL 8.5 Immature Gran % % 0.9 Neutrophils % % 73.2 Lymphocytes % % 15.6 Monocytes % % 8.8 Eosinophils % % 1.2 Basophils % % 0.3 Nucleated RBC % (0.0-0.3) % 0.0 Absolute Neutrophils (1.2-6.7) 10^3/uL 8.56 H Absolute Lymphocytes (1.2-3.4) 10^3/uL 1.83 Absolute Monocytes (0.1-0.8) 10^3/uL 1.03 H Absolute Eosinophils (0.0-0.7) 10^3/uL 0.14 Absolute Basophils (0.0-0.2) 10^3/uL 0.04 ESR (0-15) mm/hr 50 H Sodium (136-145) mmol/L 140 Potassium (3.5-5.1) mmol/L 3.5 Chloride (98-107) mmol/L 102 Carbon Dioxide (21.0-32.0) mmol/L 26.6 Anion Gap (3-11) mmol/L 11.4 H BUN (7-18) mg/dL 11 Creatinine (0.70-1.30) mg/dL 1.0 Est GFR (CKD-EPI 2020) (mL/min/1.73m2) 95.77 Glucose (74-106) mg/dL 116 H Calcium (8.5-10.1) mg/dL 9.4 Magnesium (1.8-2.4) mg/dL 2.0 Total Bilirubin (0.2-1.0) mg/dL 0.5 AST (15-37) U/L 14 L ALT (16-63) U/L 46 Alkaline Phosphatase (46-116) U/L 63 C-Reactive Protein (<or=0.5) mg/dL 6.85 H Total Protein (6.4-8.2) g/dL 7.7 Albumin (3.4-5.0) g/dL 3.1 L Quality:SDOH Health Related Social Needs: No Data to Display Sign Out Sign Out Data: Sign Out Comment: Elder is a 42-year-old male who presents to the emergency department today for evaluation of worsening cellulitis to left leg despite treatment with Augmentin and clindamycin. Labs all reassuring. Elevated inflammatory markers. Awaiting CT results. Currently receiving vancomycin. A dmission anticipated Last updated by Lilia Willard at 10/20/23 23:33 Discharge Plan Discharge Details Chief Complaint: Cellulitis Primary Care Provider: Jennifer Arreguin ED Provider: Shira Barrera Home Meds and New Rx's Prescriptions: No Action fluticasone propionate [Flonase Allergy Relief] 50 mcg/actuation spray,suspension 1 spray intranasal DAILY PRN Rx Instructions: administer into each nostril loratadine [Claritin] 10 mg tablet 10 mg PO DAILY PRN omeprazole magnesium [Prilosec OTC] 20 MG tablet,delayed release (DR/EC) 20 mg PO DAILY@0730 PRN Patient Comments: Pt took it a couple of days ago but doesn't take it often amoxicillin-pot clavulanate 875-125 mg tablet 1 tab PO BID Qty: 14 0RF Hold Instructions: Changed by Provider clindamycin HCl 300 mg capsule 300 mg PO QID 7 Days Qty: 28 0RF
[2023-10-20] MEDS: HYDROmorphone 2 MG/ML SYR 0.5 MG IVP (23:45)
--- NOTE | 2023-10-20 23:57 | DI.VRAD_ITS ---
Addendum created by Shira Marshall MD on 10/21/2023 12:02:01 AM EDT: THIS REPORT CONTAINS FINDINGS THAT MAY BE CRITICAL TO PATIENT CARE. The findings were verbally communicated via telephone conference with DR. SIMPSON at 12:00 AM EDT on 10/21/2023. The findings were acknowledged and understood. Initial report created on 10/20/2023 11:57:33 PM EDT: PROCEDURE INFORMATION: Exam: CT Left Lower Extremity With Contrast Exam date and time: 10/20/2023 11:08 PM Age: 42 years old Clinical indication: Cellulitis and other: Worsening cellulitis despite treatment; Lower leg and thigh; Left TECHNIQUE: Imaging protocol: CT of the left lower extremity with intravenous contrast was performed. Contrast material: OMNIPAQUE 350; Contrast volume: 100 ml; Contrast route: INTRAVENOUS (IV); COMPARISON: CR XR TIB/FIB LT 10/12/2023 5:24 PM FINDINGS: Bones/joints: No cortical erosions or osseous destruction to suggest osteomyelitis. No acute fracture. Tiny knee effusion. Soft tissues: Skin thickening and moderate sheet-like subcutaneous fluid are seen along the left lateral lower thigh, extending into the knee and calf. No focal drainable fluid collection. The fluid within the left lateral lower thigh abuts the fascia of the vastus lateralis muscle. IMPRESSION: Skin thickening and moderate ill-defined subcutaneous fluid throughout the left lateral lower thigh, knee and calf, suggesting cellulitis. No discrete drainable fluid collection or abscess. No evidence for osteomyelitis. The fluid tracks into deep subcutaneous tissues and is seen along the fascial plane of the vastus lateralis muscle and iliotibial band. Close clinical surveillance is suggested to exclude developing necrotizing fasciitis. Dictated and Authenticated by: Shira Marshall MD. Ordering:MUKUL Rodrigues MD
[2023-10-21] VITALS (20 sets, daily range): BP systolic 93–133; BP diastolic 50–80; PULSE 69–88; RESP 12–22; TEMP 36.7–38; O2SAT 91–100; BMI 34.3
[2023-10-21] MEDS: Chlorhexidine 4% 120 ML BTL (00:12)
--- NOTE | 2023-10-21 00:17 | W.PM.HP.N ---
Date of service: 10/21/23 Time of Service: 00:17 Assessment and Plan Assessment and plan (1) Cellulitis of left lower extremity: Start date: 10/21/23 Status: Acute Assessment and plan: This is a 42-year-old gentleman who has minimal medical problems presenting with failed outpatient treatment for cellulitis left leg. He has had a previous infection in the same leg. He is overweight but not diabetic and has no history of trauma to the area. Was on Augmentin with clindamycin and will be admitted for IV antibiotic therapy including meropenem, vancomycin and clindamycin. He may have evidence of early involvement of the fascial plane though this is not clear on CT. Surgery will be consulted and will review imaging. Patient is not having escalating pain and does not need to see the surgeon tonight but if any increased pain, the surgeon knows that he will need to see him immediately. Blood cultures were performed. Follow-up imaging if needed. Patient is a full code. (2) Seasonal allergies: Status: Chronic Assessment and plan: Continue outpatient medical therapy as needed. (3) Obesity: Status: Chronic Assessment and plan: Patient advised to lose weight. His usual weight is about 190 pounds. He could be more active. This may be increasing his risk for lower extremity edema and poor circulation. Qualifiers: Obesity type: due to excess calories Obesity classification: adult class 1 (BMI 30 - 34.9) Serious obesity comorbidity presence: without serious comorbidity Body mass index: BMI 33.0-33.9 Qualified Code(s): E66.09 - Other obesity due to excess calories; Z68.33 - Body mass index [BMI] 33.0-33.9, adult History of Present Illness History of Present Illness Chief Complaint: Worsening cellulitis left leg treated more than a week outpatient Narrative: This is a 42-year-old male patient who had onset of cellulitis left leg over his anterior tibialis area with previous infection in the same area and other abrasions over the lower extremities with atrophic scars especially over the anterior tibialis areas. He is obese but denies any chronic swelling. He is not diabetic. He does not usually develop to the doctor and not on any specific treatment other than seasonal allergies. His partner is a nurse and has some concerns about his lack of medical care and has been watching the red areas over his legs with markings the borders a week ago which have progressed of his left medial leg now. Does have some blistering but no overt drainage. He does have pain when walking but not at rest. Imaging did reveal sheetlike subcutaneous fluid but no fluid collection or abscess but abutment of this fluid to the fascia of the vastus lateralis muscle in the left lower thigh. He was advised to watch closely for excising fasciitis and the patient's pain not worsening I did call surgery to review the imaging and consult morning. For now we will aggressively treat with IV antibiotic therapy having failed Augmentin with clindamycin as an outpatient he did have chills earlier during his course of infection but the last 3 to 4 days has not had chills or measurable fever. Blood cultures will be obtained. Will be started on provide therapy and watch closely for advancing and swelling. He is a full code. Review of Systems Narrative: 13 point review of systems otherwise unrevealing or stable. PFSH All Active Problems (Updated 10/21/23 @ 01:04 by Sandor Arreola) Obesity (Chronic) Seasonal allergies (Chronic) Cellulitis of left leg (Acute) Cellulitis of left lower extremity (Acute) Cellulitis of left leg (Acute) Elevated blood pressure reading in office without diagnosis of hypertension (Acute) Family History Mother Personal history of malignant neoplasm PANCREATIC Father Alcohol use disorder Passed at age 61 Grandmother Personal history of malignant neoplasm PANCREATIC Stroke Social History Smoking/Tobacco Use Status: Former Tobacco Use tobacco type: smokeless tobacco Tobacco: How many years used: 15 Smokeless tobacco user: chewing tobacco Quit status: has quit before Second Hand Exposure: Yes Smoking risk assessment performed?: Yes Alcohol Intake: current Alcohol Intake frequency: a few times a week Alcohol type: beer Drug use: Never Household members: spouse and children Housing: house Pets and animals: Yes Pets and animals: dog(s) and other Do you think of yourself as: straight/heterosexual Current gender identity: male What is your relationship status?: How often do you talk on the phone with friends or family?: once per week How often do you get together with friends or relatives?: twice per week Do you belong to any clubs or organized social groups?: yes Panel score (0-1 are the most socially isolated patients): 3 What type of physical activity do you participate in: other 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 Do you feel safe at home: Yes Do you feel safe in your relationship?: Yes Meds Allergies and Home Medications Allergies Allergy/AdvReac Type Severity Reaction Status Date / Time aspirin Allergy Unknown unknown Unverified 10/19/23 11:58 Home Medications Medication Instructions Recorded Confirmed Type omeprazole magnesium 20 mg 20 mg PO DAILY@0730 PRN 02/21/13 10/20/23 History tablet,delayed release (Prilosec OTC) fluticasone propionate 50 1 spray intranasal DAILY PRN 01/11/23 10/20/23 History mcg/actuation nasal spray,suspension (Flonase Allergy Relief) loratadine 10 mg tablet (Claritin) 10 mg PO DAILY PRN 01/11/23 10/20/23 History amoxicillin 875 mg-potassium 1 tab PO BID #14 tabs 10/12/23 10/20/23 Rx clavulanate 125 mg tablet clindamycin HCl 300 mg capsule 300 mg PO QID 7 days #28 caps 10/17/23 10/20/23 Rx Exam Narrative Exam Narrative: General: Patient appears appropriate for age, flattened affect with good eye contact. He is in moderate distress from his left leg discomfort lying in bed with his head at a 45 degree angle. He is alert and oriented x 3. HEENT: Normocephalic, eyes with pupils equal and reactive to light symmetrically, extraocular movement intact and sclera anicteric. Oropharynx with moist Koza and fair dentition. Neck: Supple without JVD. Back: Stooped posture without CVA tenderness. Lungs: Fair aeration clear to auscultation percussion with no focalizing rales or rhonchi. Heart: Regular rate and rhythm with no murmurs or gallops appreciated. Abdomen: Obese contour, soft nontender to palpation with no palpable hepatosplenomegaly. Bowel sounds positive all quadrants there is no tenderness to palpation over the left inguinal lymph nodes. Genitalia/rectal: Exam deferred. Extremities: Moderate nonpitting edema both lower extremities worse on the left with erythema which is marked with a dark marker along the periphery of the well-demarcated, erythematous warm to touch area mostly over the medial aspect of the leg extending to the knee and lower thigh where it is more swollen. He has tenderness mostly to palpation over the medial thigh area. There are small and larger bullae but no drainage or moistness. No abscess. The affected areas are swollen and tender to touch but not fluctuant. Peripheral pulses are intact dorsalis pedis pulses 2+ bilaterally. Skin: Erythematous rash over left leg as described otherwise normal color, warm and slightly moist. Neuro: Cranial nerves II through XII gross intact, no focalizing motor deficits. No tremor. Psych: Flattened affect with depressed mood. Slow monotonous tone to voice. No abnormal thought processes. Remote and recent memory grossly intact. Results Imaging Imaging Studies: Exam: CT Left Lower Extremity With Contrast Exam date and time: 10/20/2023 11:08 PM Age: 42 years old Clinical indication: Cellulitis and other: Worsening cellulitis despite treatment; Lower leg and thigh; Left TECHNIQUE: Imaging protocol: CT of the left lower extremity with intravenous contrast was performed. Contrast material: OMNIPAQUE 350; Contrast volume: 100 ml; Contrast route: INTRAVENOUS (IV); COMPARISON: CR XR TIB/FIB LT 10/12/2023 5:24 PM FINDINGS: Bones/joints: No cortical erosions or osseous destruction to suggest osteomyelitis. No acute fracture. Tiny knee effusion. Soft tissues: Skin thickening and moderate sheet-like subcutaneous fluid are seen along the left lateral lower thigh, extending into the knee and calf. No focal drainable fluid collection. The fluid within the left lateral lower thigh abuts the fascia of the vastus lateralis muscle. IMPRESSION: Skin thickening and moderate ill-defined subcutaneous fluid throughout the left lateral lower thigh, knee and calf, suggesting cellulitis. No discrete drainable fluid collection or abscess. No evidence for osteomyelitis. The fluid tracks into deep subcutaneous tissues and is seen along the fascial plane of the vastus lateralis muscle and iliotibial band. Close clinical surveillance is suggested to exclude developing necrotizing fasciitis. Labs 10/20/23 22:01 10/20/23 22:01 Labs: Laboratory Results - last 24 hr 10/20/23 22:01 WBC 11.70 H RBC 4.37 Hgb 13.5 Hct 38.7 L MCV 89 MCH 30.9 MCHC 34.9 RDW 11.6 L Plt Count 473 H MPV 8.5 Immature Gran % 0.9 Neutrophils % 73.2 Lymphocytes % 15.6 Monocytes % 8.8 Eosinophils % 1.2 Basophils % 0.3 Nucleated RBC % 0.0 Absolute Neutrophils 8.56 H Absolute Lymphocytes 1.83 Absolute Monocytes 1.03 H Absolute Eosinophils 0.14 Absolute Basophils 0.04 ESR 50 H Sodium 140 Potassium 3.5 Chloride 102 Carbon Dioxide 26.6 Anion Gap 11.4 H BUN 11 Creatinine 1.0 Est GFR (CKD-EPI 2020) 95.77 Glucose 116 H Calcium 9.4 Magnesium 2.0 Total Bilirubin 0.5 AST 14 L ALT 46 Alkaline Phosphatase 63 C-Reactive Protein 6.85 H Total Protein 7.7 Albumin 3.1 L Last Vital Signs Pulse 83 10/20/23 21:23 Resp 18 10/20/23 21:23 BP 134/85 10/20/23 21:23 Pulse Ox 98 10/20/23 21:23 Time Spent Time spent with Patient: 55-74 minutes Time was spent: preparing to see the patient(eg.review tests), obtaining and/or reviewing separately otained hiistory, ordering medications,tests, procedures, referring, communicating with other health senior care provider, indepentently interpreting results, counseling the patient and care coordination
[2023-10-21] MEDS: Normal Saline 1,000 ML 125 ML IV (03:42)
[2023-10-21] MEDS: CLINDAMYCIN 900 MG/50 ML BAG 50 MG IVPB ×3 (03:45→20:06)
--- NOTE | 2023-10-21 06:49 | SCONE_ITS ---
Date of service: 10/21/23 Time of Service: 06:50 Assessment and Plan Assessment and plan (1) Cellulitis of left leg: Status: Acute Assessment and plan: Clinical features are most consistent with a severe cellulitis, and probably evolving abscess in the left thigh. It is already drained some fluid, he seems to be doing a little better with the intravenous antibiotics. Although there is still a fluctuant pointed area on the left thigh. We talked about the role of incision and drainage here, and I do think that would probably help him feel better. At the current time he is little hesitant. I have asked him not to eat or drink anything this morning, we can reassess through the later portion of the morning to see how he is feeling. I would continue with the broad-spectrum antibiotics for right now. History of Present Illness History of Present Illness Chief Complaint: Right leg pain Narrative: Elder is 42 years old. Around 12 days ago, he banged the left salgado against some metal equipment. He was wearing full-length pants. He sustained an abrasion to the skin over the anterior salgado. He did not think much of it, and says he did not do a very good job taking care of the abrasion. Few days later, he started to develop some pain and redness around the area. He went to the emergency department on the . he had a leukocytosis around 13,000 and erythema on the salgado extending up towards the knee consistent with cellulitis. He was started on Augmentin and discharged home. He came back to the hospital on the with increased pain and redness. White blood cell count was a little bit better, and sounds like the exam was relatively stable compared to the first. He was switched over to clindamycin. Over the past 72 hours, the pain has increased, mostly on the posterior medial side of the left thigh. He also noticed an area of blistered skin with some mild ecchymosis around the same time. While coming into the hospital, the blister broke, and drained serous colored fluid. He did not appreciate any type of foul smell, and he did have some relief of his discomfort. In the emergency department, he had a white blood cell count 11,000. He underwent a CT scan of the leg that demonstrated edema of the skin and subcutaneous tissues from about the midportion of the posterior side of the left thigh down below the knee. There is no effusion. There is a suggestion of some fluid collecting superficial to the deep fascia. He was admitted to the hospital and started on meropenem, vancomycin and clindamycin. Review of Systems Constitutional Constitutional: Denies body ache(s), Denies chills, Denies fatigue, Denies fever(s), Denies lethargy, Denies poor appetite and Denies weakness Eyes Eyes: Reports system reviewed and no additional complaints, except as documented ENT Ears, Nose, Mouth, and Throat: Reports system reviewed and no additional complaints, except as documented Cardiovascular Cardiovascular: Denies chest pain and Denies dyspnea Respiratory Respiratory: Denies chest congestion, Denies cough and Denies dyspnea Gastrointestinal Gastrointestinal: Denies abdominal pain, Denies change in stool character, Denies nausea and Denies vomiting Musculoskeletal Musculoskeletal: Reports abnormal gait Comments: Left leg pain with weightbearing and movement Neurologic Neurologic: Reports system reviewed and no additional complaints, except as documented, Reports abnormal gait and Denies weakness Endocrine Endocrine: Denies change in body appearance, Denies fatigue, Denies polydipsia and Denies polyuria Hematologic/Lymphatic Hematologic/Lymphatic: Denies easy bleeding and Denies easy bruising PFSH All Active Problems Obesity (Chronic) Seasonal allergies (Chronic) Cellulitis of left leg (Acute) Cellulitis of left lower extremity (Acute) Cellulitis of left leg (Acute) Elevated blood pressure reading in office without diagnosis of hypertension (Acute) Family History Mother Personal history of malignant neoplasm PANCREATIC Father Alcohol use disorder Passed at age 61 Grandmother Personal history of malignant neoplasm PANCREATIC Stroke Social History Smoking/Tobacco Use Status: Former Tobacco Use tobacco type: smokeless tobacco Tobacco: How many years used: 15 Smokeless tobacco user: chewing tobacco Quit status: has quit before Second Hand Exposure: Yes Smoking risk assessment performed?: Yes Alcohol Intake: current Alcohol Intake frequency: a few times a week Alcohol type: beer Drug use: Never Household members: spouse and children Housing: house Pets and animals: Yes Pets and animals: dog(s) and other Do you think of yourself as: straight/heterosexual Current gender identity: male What is your relationship status?: How often do you talk on the phone with friends or family?: once per week How often do you get together with friends or relatives?: twice per week Do you belong to any clubs or organized social groups?: yes Panel score (0-1 are the most socially isolated patients): 3 What type of physical activity do you participate in: other 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 No appreciable knee effusion. Pulse motor and sensation down through the foot is all intact. There is no crepitus. Results Last Vital Signs Temp 99.9 F H 10/21/23 01:33 Pulse 78 10/21/23 01:33 Resp 18 10/21/23 01:33 BP 114/80 10/21/23 01:33 Pulse Ox 98 10/21/23 01:33 Labs 10/20/23 22:01 10/20/23 22:01 Labs: Laboratory Results - last 24 hr 10/20/23 22:01 WBC 11.70 H RBC 4.37 Hgb 13.5 Hct 38.7 L MCV 89 MCH 30.9 MCHC 34.9 RDW 11.6 L Plt Count 473 H MPV 8.5 Immature Gran % 0.9 Neutrophils % 73.2 Lymphocytes % 15.6 Monocytes % 8.8 Eosinophils % 1.2 Basophils % 0.3 Nucleated RBC % 0.0 Absolute Neutrophils 8.56 H Absolute Lymphocytes 1.83 Absolute Monocytes 1.03 H Absolute Eosinophils 0.14 Absolute Basophils 0.04 ESR 50 H Sodium 140 Potassium 3.5 Chloride 102 Carbon Dioxide 26.6 Anion Gap 11.4 H BUN 11 Creatinine 1.0 Est GFR (CKD-EPI 2020) 95.77 Glucose 116 H Calcium 9.4 Magnesium 2.0 Total Bilirubin 0.5 AST 14 L ALT 46 Alkaline Phosphatase 63 C-Reactive Protein 6.85 H Total Protein 7.7 Albumin 3.1 L Imaging Imaging Studies: I personally reviewed the imaging of the left leg
[2023-10-21 06:57] LABS: HCT 40.5 % (40.0-50.0); MCH 30.6 pg (27.0-33.0); MCHC 34.6 % (32.0-36.0); MCV 88 fL (80-95); MPV 8.5 fL (8.0-11.0); Platelet Count 404 10^3/uL (130-400); RBC 4.58 10^6/uL (4.36-5.78); RDW 11.8 % (11.8-14.1); RDW-SD 37.8 fL; WBC 9.17 10^3/uL (4.4-10.8)
[2023-10-21 07:15] LABS: ALT 37 U/L (16-63); AST 14 U/L (15-37); Albumin 2.7 g/dL (3.4-5.0); Alkaline Phosphatase 55 U/L (46-116); Anion Gap 9.6 mmol/L (3-11); BUN 11 mg/dL (7-18); Bilirubin, Total 0.6 mg/dL (0.2-1.0); CO2 25.4 mmol/L (21.0-32.0); CREATININE 0.8 mg/dL (0.70-1.30); Calcium 9.1 mg/dL (8.5-10.1); Chloride 104 mmol/L (98-107); Estimated GFR 112.61 (mL/min/1.73m2); Glucose 92 mg/dL (74-106); Potassium 4.1 mmol/L (3.5-5.1); Sodium 139 mmol/L (136-145)
--- NOTE | 2023-10-21 08:58 | INITIAL_ITS ---
Date of service: 10/21/23 Time of Service: 08:58 Care Management Initial Assmt Initial Assessment REASON FOR HOSPITALIZATION:: Cellulites (left leg) PREVIOUS FUNCTIONAL STATUS/SOCIAL/FAMILY SUPPORTS:: Elder is and lives in [place] with his Andree and their daughter. 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 Elder drives and is fully independent with his ADL/IADL's at baseline. CURRENT FUNCTIONAL STATUS:: Elder was lying in bed visiting with his when CM met with him. He is planning on going to the OR for I&D of his left leg. No concerns at this time. CM will follow. ADVANCE DIRECTIVES:: None Has patient been provided with info about the portal/API?: Yes Did the patient sign up for the portal?: No CODE STATUS:: Full Code INSURANCE COVERAGE / FINANCIAL ISSUES:: /[facility] CURRENT HOME/COMMUNITY SERVICES/EQUIPMENT:: None PRIMARY CARE PHYSICIAN:: Jennifer Arreguin POTENTIAL DISCHARGE NEEDS:: Discharge plan of care, follow up appointments PATIENT/FAMILY EDUCATION NEEDS:: Review discharge instructions, limitations, medications and plan to follow up with community providers. Discuss ask me three. ANTICIPATED BARRIERS TO DISCHARGE:: Non identified at this time. TRANSPORTATION:: Via private vehicle with PLAN:: Elder requires IV ABX and a surgical consultation. He may need surgical intervention for severe cellulites. Anticipate Elder will discharge home when medically ready with a course of abx. Cultures are pending. No new services are anticipated at this time. CM will follow. PFSH All Active Problems Obesity (Chronic) Seasonal allergies (Chronic) Cellulitis of left leg (Acute) Cellulitis of left lower extremity (Acute) Cellulitis of left leg (Acute) Elevated blood pressure reading in office without diagnosis of hypertension (Acute) Family History Mother Personal history of malignant neoplasm PANCREATIC Father Alcohol use disorder Passed at age 61 Grandmother Personal history of malignant neoplasm PANCREATIC Stroke Social History Smoking/Tobacco Use Status: Former Tobacco Use tobacco type: smokeless tobacco Tobacco: How many years used: 15 Smokeless tobacco user: chewing tobacco Quit status: has quit before Second Hand Exposure: Yes Smoking risk assessment performed?: Yes Alcohol Intake: current Alcohol Intake frequency: a few times a week Alcohol type: beer Drug use: Never Household members: spouse and children Housing: house Pets and animals: Yes Pets and animals: dog(s) and other Do you think of yourself as: straight/heterosexual Current gender identity: male What is your relationship status?: How often do you talk on the phone with friends or family?: once per week How often do you get together with friends or relatives?: twice per week Do you belong to any clubs or organized social groups?: yes Panel score (0-1 are the most socially isolated patients): 3 What type of physical activity do you participate in: other 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: 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 Drive intox 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: No Do you feel safe at home: Yes Do you feel safe in your relationship?: Yes SDOH(Care Management) Screening Will the Patient Participate in the Screening?: Yes Do you worry about having a steady place to live?: no Problems where you live: no known problems In the past 12 months, have you had to go without electric, gas, oil or water in your home?: no Have you or anyone in your house had to go without enough food to eat?: no Has lack of transportation kept you from medical appointments or from doing things needed for daily living?: no Has anyone in your support network made you feel unsafe for any reason?: no
[2023-10-21] MEDS: Normal Saline Flush 10 ML SYR IVP ×3 (09:35→20:23)
--- NOTE | 2023-10-21 12:47 | W.ANESPRE ---
General Info Date of Service Date Performed: 10/21/23 Height: 5 ft 9 in Weight: 105.5 kg Body Mass Index (BMI): 34.3 Surgical Procedure: Operation Date: 10/21/23 14:55 Proposed Procedure Side Surgeon p I & D Thigh Abscess Left Job Brink MD Meds Allergies and Home Medications Allergies Allergy/AdvReac Type Severity Reaction Status Date / Time aspirin Allergy Unknown unknown Unverified 10/19/23 11:58 Home Medication Medication Instructions Recorded omeprazole magnesium 20 mg 20 mg PO DAILY@0730 PRN 02/21/13 tablet,delayed release (Prilosec OTC) fluticasone propionate 50 1 spray intranasal DAILY PRN 01/11/23 mcg/actuation nasal spray,suspension (Flonase Allergy Relief) loratadine 10 mg tablet (Claritin) 10 mg PO DAILY PRN 01/11/23 amoxicillin 875 mg-potassium 1 tab PO BID #14 tabs 10/12/23 clavulanate 125 mg tablet clindamycin HCl 300 mg capsule 300 mg PO QID 7 days #28 caps 10/17/23 Current Visit Medications: Current Medications Generic Name Dose Route Start Last Admin Trade Name Freq PRN Reason Stop Dose Admin Acetaminophen 0 mg 10/21/23 00:30 Acetaminophen 325 Mg Tab PO Q4H PRN PRN Al Hydrox/Mg Hydrox/Simethicone 15 ml 10/21/23 00:30 Mylanta Double Strength Suspension 30 Ml Cup PO Q2H PRN PRN Docusate Sodium 100 mg 10/21/23 00:30 Docusate Sodium 100 Mg Cap PO TID PRN PRN Enoxaparin Sodium 40 mg 10/21/23 08:30 10/21/23 09:56 Enoxaparin 40 Mg/0.4 Ml Syr SC Not Given Q24H BENNY Fluticasone Propionate 0 gm 10/21/23 07:36 Fluticasone Nasal Julian 16 Gm Btl NS DAILY PRN PRN Sodium Chloride 1,000 mls @ 125 mls/hr 10/21/23 00:45 10/21/23 03:42 Saline 1000ml Bag IV 125 mls/hr INFUSION BENNY Administration Meropenem 2 gm/ Sodium 100 mls @ 200 mls/hr 10/21/23 02:00 10/21/23 11:00 Chloride IVPB Infused Q8H BENNY Infusion Clindamycin Phosphate/Dextrose 900 mg in 50 mls @ 50 mls/hr 10/21/23 04:00 10/21/23 12:08 Cleocin In D5w IVPB 50 mls/hr Q8H BENNY Administration Vancomycin/PEG/NADA/Lysine/Water 1.75 gm in 350 mls @ 175 mls/hr 10/21/23 12:00 Vancocin Injection IVPB Q12H [facility] IV Miscellaneous Supplies 1 each 10/21/23 00:30 Iv Access IV DIRECTED [facility] Loratadine 10 mg 10/21/23 00:39 Loratidine 10 Mg Tab PO DAILY PRN Magnesium Hydroxide 30 ml 10/21/23 00:30 Milk Of Magnesia 30 Ml Cup PO DAILY PRN PRN Morphine Sulfate 4 mg 10/21/23 00:45 Morphine 4 Mg/Ml Syr IVP Q2H PRN PRN Omeprazole 20 mg 10/21/23 01:47 Omeprazole 20 Mg Capcr PO DAILY@0730 PRN Polyethylene Glycol 17 gm 10/21/23 00:30 Polyethylene Glycol 3350 17 Gm Packet PO DAILY PRN PRN Constipation Sodium Chloride 0 ml 10/20/23 22:05 10/20/23 23:01 Normal Saline Flush 10 Ml Syr IVP 10 ml PRN PRN Administration Sodium Chloride 0 ml 10/21/23 08:30 10/21/23 09:35 Normal Saline Flush 10 Ml Syr IVP 10 ml BID BENNY Administration Sodium Chloride 0 ml 10/20/23 22:05 Normal Saline 10 Ml Vial IJ DIRECTED PRN PFSH Active Problems Active Problems: Problem Status Onset Code Obesity E66.9 Seasonal allergies J30.2 Cellulitis of left leg L03.116 Cellulitis of left lower extremity L03.116 Cellulitis of left leg L03.116 Elevated blood pressure reading in office without diagnosis of hypertension R03.0 Tobacco Smoking/Tobacco Use Status: Former Tobacco Use Smokeless tobacco user: chewing tobacco Passive smoking exposure: Yes Second hand exposure: Yes Alcohol Alcohol Intake: current Alcohol intake frequency: a few times a week Alcohol type: beer Substance Use Substance use: Never Vital Signs and Lab Results Vital Signs Most Recent Vital Signs in EMR: Most Recent Vital Signs Temp Pulse Resp BP Pulse Ox 37.4 C 78 17 114/70 98 10/21/23 11:06 10/21/23 11:06 10/21/23 11:06 10/21/23 11:06 10/21/23 11:06 Lab Results 10/21/23 05:54 10/21/23 05:54 Blood Type / Crossmatch: No Data to Display Complete Blood Count: White Blood Count 9.17 10^3/uL (4.4-10.8) 10/21/23 05:54 Red Blood Count 4.58 10^6/uL (4.36-5.78) 10/21/23 05:54 Hemoglobin 14.0 g/dL (13.5-17.5) 10/21/23 05:54 Hematocrit 40.5 % (40.0-50.0) 10/21/23 05:54 Platelet Count 404 10^3/uL (130-400) H 10/21/23 05:54 Venous Blood Lactate 1.9 mmol/L (0.6-1.4) H 10/19/23 12:25 Complete Metabolic Panel: Sodium 139 mmol/L (136-145) 10/21/23 05:54 Potassium 4.1 mmol/L (3.5-5.1) 10/21/23 05:54 Chloride 104 mmol/L (98-107) 10/21/23 05:54 Carbon Dioxide 25.4 mmol/L (21.0-32.0) 10/21/23 05:54 BUN 11 mg/dL (7-18) 10/21/23 05:54 Creatinine 0.8 mg/dL (0.70-1.30) 10/21/23 05:54 Est GFR (CKD-EPI 2020) 112.61 (mL/min/1.73m2) 10/21/23 05:54 Magnesium 2.0 mg/dL (1.8-2.4) 10/20/23 22:01 Calcium 9.1 mg/dL (8.5-10.1) 10/21/23 05:54 Albumin 2.7 g/dL (3.4-5.0) L 10/21/23 05:54 Glucose 92 mg/dL (74-106) 10/21/23 05:54 C-Reactive Protein 6.85 mg/dL (<or=0.5) H 10/20/23 22:01 Liver Function Panel: Alanine Aminotransferase (ALT/SGPT) 37 U/L (16-63) 10/21/23 05:54 Aspartate Amino Transf (AST/SGOT) 14 U/L (15-37) L 10/21/23 05:54 Coagulation Panel: No Data to Display Cardiac Panel: No Data to Display Arterial Blood Gas: No Data to Display Venous Blood Gas: No Data to Display Pancreas Panel: No Data to Display Thyroid Panel: No Data to Display Infectious Disease: No Data to Display Blood Cultures: No Data to Display Toxicology Panel: No Data to Display Anesthesia Assessment and Plan Anesthesia History Personal History: No History of Anesthesia Complications Family History: No Family History of Anesthesia Complications Exercise Tolerance Exercise Tolerance: Metabolic Equivalents>4 Pertinent Negatives Pertinent Negatives: No Symptoms of GERD, No Major Cardiovascular Symptoms or Complaints, No Major Pulmonary Symptoms or Complaints and No History of CVA/TIA Cardiac & Pulmonary Exam Cardiac Exam: Normal S1/S2 Heart Sounds Pulmonary Exam: Clear Bilateral Breath Sounds Implantable Cardiac Device Does patient have a Pacemaker or an ICD?: No Airway Exam Known Difficult Airway: No Mallampati Class: 4 Mouth Opening: Normal (> 3cm) Thyromental Distance: Greater than 3 cm Facial Hair: Full Loco Neck Range of Motion: Full ROM Neck Circumference: Thick Teeth Condition: Normal Dentition ASA Classification ASA Score: ASA 2 Emergency Case?: No NPO Status NPO Status: NPO Clears >2 hours, Solids >8 hours Anesthesia Plan Resuscitation Status: Full Code Anesthesia Technique: General Anesthesia Airway Planned: Natural Airway Monitors Used: Standard Monitors
--- NOTE | 2023-10-21 13:39 | NUR.NOTE ---
Pt dropped off at PACU, report given Nursing Note:
[2023-10-21] MEDS: VANCOMYCIN/WATER (PEG) 1.75 GM/350 ML BAG IVPB (14:05)
[2023-10-21] MEDS: Bupivacaine 0.5% Pres-Free W/EPI 30 ML VIAL (14:10)
--- NOTE | 2023-10-21 14:43 | ROE_ITS ---
Date of service: 10/21/23 Time of Service: 14:43 Operative Note Operative Note DATE OF PROCEDURE: 10/21/23 PRE-OP DIAGNOSIS: Left leg cellulitis with abscess POST-OP DIAGNOSIS: same PROCEDURE: Incision and drainage of left leg abscesses x 3 SURGEON: Job Brink WOOD FLOORING SPECIALIST: Lizy Antonio ANESTHESIA TYPE: Local By Surgeon and General LMA/ETT Refer to Anesthesia Record ESTIMATED BLOOD LOSS: 10 PATHOLOGY: other (Gram stain and culture of left thigh abscess) COMPLICATIONS: None Patient was transported to: PACU Patient's condition: stable Indications: Elder is a 42-year-old male who sustained an abrasion on the left salgado approximately week and a half ago. After that, he developed some erythema around the wound site, was seen in the ER and diagnosed with cellulitis. He was started on some antibiotics. The cellulitis progressed, and his antibiotics were switched. He came back to the emergency room last night with some spontaneous drainage from a increasing painful site on the posterior medial aspect of the left thigh. He underwent a CT scan of the leg that demonstrated extensive cellulitis, and the possibility of abscesses and subcutaneous tissue. Findings: Small abscess cavity on the left salgado measuring approximately 2 cm x 1 cm x 1 cm, abscess cavity in the posterior lateral aspect of the left thigh more distally, measuring approximately 2 x 2 x 4, abscess cavity on the posterior lateral aspect of the left thigh more approximately measuring approximately 2 x 2 x 2 Procedure Description: After the induction of general anesthesia, the patient's left leg was prepped and draped. Next, generous field blocks were established using local anesthetic with epinephrine. Next, we started with the abscess cavity on the posterior lateral aspect of the left thigh that was most fluctuant and had already drained a bit spontaneously. This was incised in a cruciate fashion. There was drainage of purulent fluid. Specimens were obtained for Gram stain and culture. Minimal loculations were broken up manually, and the tract extended down approximately 4 cm in depth slightly towards the knee. Next, we turned our attention to the more proximal lesion. This was about 2 x 2 cm in its greatest dimensions at the skin level. This was also incised in a cruciate fashion, with some drainage of purulent fluid here as well. This also extended down about 2 cm into the subcutaneous tissues. Both the sites were irrigated clean. There were carefully examined. The integrity of the fascia and supportive soft tissues around the wounds was healthy, and it did not at all feel consistent with any type of necrotizing soft tissue infection. Finally, we turned our attention to the lesion on the left salgado. This was a little more hemorrhagic in appearance. It actually appeared most consistent with an old contusion site. This was also anesthetized, and then incised in a cruciate fashion similar to the first 2. The fluid that drained did really appear more consistent with old blood, with not much purulence. All 3 of the sites were then copiously irrigated, and gently packed with iodoform packing. ABDs and tape were used to dress the wounds, and the patient was allowed awaken from anesthesia and transf erred to the recovery unit.
--- NOTE | 2023-10-21 14:53 | W.ANESPOSTOP ---
Postoperative Evaluation Date, Time and Location Date Performed: 10/21/23 Time Performed: 14:54 Patient Location: PACU Vital Signs Most Recent Imported Vital Signs: Most Recent Vital Signs Temp Pulse Resp BP Pulse Ox 36.8 C 70 18 96/51 L 95 10/21/23 14:48 10/21/23 14:48 10/21/23 14:48 10/21/23 14:48 10/21/23 14:48 Pain Score Most Recent Pain Score: Most Recent Pain Score Pain Level 0 10/21/23 14:48 Assessment Mental Status: Awake (Alert & Oriented to Patient Baseline) Airway and Respiratory Function: Patent airway with normal (patient baseline) respiratory exam Cardiovascular Function: Hemodynamically Stable Hydration Status: Adequately Hydrated Nausea & Vomiting: No Nausea or Vomiting Pain: Pt. Denies Any Pain Peripheral Nerve Block: Patient did not receive a nerve block
--- NOTE | 2023-10-21 16:26 | NUR.NOTE ---
Notified surgeon of current VS with low BP. Nursing Note:
[2023-10-21] MEDS: MEROPENEM 1 GM in Normal Saline 100 ML IVPB (17:26)
[2023-10-22] MEDS: MEROPENEM 1 GM in Normal Saline 100 ML IVPB ×3 (01:18→18:28)
[2023-10-22] MEDS: VANCOMYCIN/WATER (PEG) 1.75 GM/350 ML BAG IVPB ×2 (01:53→14:27)
[2023-10-22 03:32] VITALS: BP 126/62; PULSE 68; RESP 18; TEMP 36.1; O2SAT 94
[2023-10-22] MEDS: CLINDAMYCIN 900 MG/50 ML BAG 50 MG IVPB ×3 (04:25→20:06)
[2023-10-22 07:40] VITALS: BP 106/79; PULSE 63; RESP 16; TEMP 37; O2SAT 97
[2023-10-22] MEDS: Enoxaparin 40 MG/0.4 ML SYR SC (08:51)
[2023-10-22] MEDS: Normal Saline Flush 10 ML SYR IVP ×4 (08:53→23:53)
--- NOTE | 2023-10-22 09:40 | PGE_ITS ---
Date of Service Date of service: 10/22/23 Time of Service: 09:40 Assessment and Plan Assessment and plan (1) Cellulitis of left lower extremity: Status: Acute Assessment and plan: - Patient initially presented with failed outpatient therapy for left lower extremity cellulitis that was also determined to have left medial thigh abscess -He is now postop day 1 for incision and drainage -He had failed outpatient trial of amoxicillin and clindamycin prior to presenting -Has been on IV clindamycin, Merrem and Vanco since admission, will continue until abscess aspirate culture results (2) Seasonal allergies: Status: Chronic Assessment and plan: Continue outpatient medical therapy as needed. (3) Obesity: Status: Chronic Assessment and plan: Patient advised to lose weight. His usual weight is about 190 pounds. He could be more active. This may be increasing his risk for lower extremity edema and poor circulation. Qualifiers: Obesity type: due to excess calories Obesity classification: adult class 1 (BMI 30 - 34.9) Serious obesity comorbidity presence: without serious comorbidity Body mass index: BMI 33.0-33.9 Qualified Code(s): E66.09 - Other obesity due to excess calories; Z68.33 - Body mass index [BMI] 33.0-33.9, adult Subjective Subjective Interval history since last seen: Patient states that he is feeling significantly better and believes that the redness and swelling of his infection is also improved. He understands the plan to continue on broad-spectrum antibiotics until wound aspirate culture results are available. Otherwise has no other complaints or concerns at this time. Exam Narrative Exam Narrative: Well-appearing gentleman laying in bed in no acute distress, ANO x 4, heart rate regular rate and rhythm, lungs clear to auscultation bilaterally, abdomen soft, nontender, nondistended, left lower extremity bandaged from distal calf to about mid thigh with some visible areas of previously demarcated lines showing improvement of erythema Objective Last Vital Signs Temp 98.6 F 10/22/23 07:40 Pulse 63 10/22/23 07:40 Resp 16 10/22/23 07:40 BP 106/79 10/22/23 07:40 Pulse Ox 97 10/22/23 07:40 Time Spent with Patient Time Spent with Patient: >50 minutes Time was spent: preparing to see the patient(eg.review tests), obtaining and/or reviewing separately otained hiistory, ordering medications,tests, procedures, referring, communicating with other health managed care specialist, indepentently interpreting results, counseling the patient and care coordination
[2023-10-22 11:12] VITALS: BP 113/71; PULSE 64; RESP 17; TEMP 36.3; O2SAT 94
--- NOTE | 2023-10-22 12:04 | PDOC.CMIN ---
Date of service: 10/22/23 Time of Service: 12:04 [facility] All Active Problems Obesity (Chronic) Seasonal allergies (Chronic) Cellulitis of left leg (Acute) Cellulitis of left lower extremity (Acute) Cellulitis of left leg (Acute) Elevated blood pressure reading in office without diagnosis of hypertension (Acute) Family History Mother Personal history of malignant neoplasm PANCREATIC Father Alcohol use disorder Passed at age 61 Grandmother Personal history of malignant neoplasm PANCREATIC Stroke Social History Smoking/Tobacco Use Status: Former Tobacco Use tobacco type: smokeless tobacco Tobacco: How many years used: 15 Smokeless tobacco user: chewing tobacco Quit status: has quit before Second Hand Exposure: Yes Smoking risk assessment performed?: Yes Alcohol Intake: current Alcohol Intake frequency: a few times a week Alcohol type: beer Drug use: Never Household members: spouse and children Housing: house Pets and animals: Yes Pets and animals: dog(s) and other Do you think of yourself as: straight/heterosexual Current gender identity: male What is your relationship status?: How often do you talk on the phone with friends or family?: once per week How often do you get together with friends or relatives?: twice per week Do you belong to any clubs or organized social groups?: yes Panel score (0-1 are the most socially isolated patients): 3 What type of physical activity do you participate in: other 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 Drive intox 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 test car driver: No Do you feel safe at home: Yes Do you feel safe in your relationship?: Yes SDOH(Care Management) Screening Will the Patient Participate in the Screening?: Yes Do you worry about having a steady place to live?: no Problems where you live: no known problems In the past 12 months, have you had to go without electric, gas, oil or water in your home?: no Have you or anyone in your house had to go without enough food to eat?: no Has lack of transportation kept you from medical appointments or from doing things needed for daily living?: no Has anyone in your support network made you feel unsafe for any reason?: no
[2023-10-22] MEDS: MORPHine 4 MG/ML SYR IVP (12:58)
--- NOTE | 2023-10-22 14:18 | W.PM.OP ---
Date of service: 10/22/23 Time of Service: 14:19 Operative Note Operative Note DATE OF PROCEDURE: 10/21/23 POST-OP DIAGNOSIS: same PATIENT FINANCIAL SERVICES MANAGER: Lizy Antonio ANESTHESIA TYPE: Local By Surgeon and General LMA/ETT Refer to Anesthesia Record ESTIMATED BLOOD LOSS: 10 PATHOLOGY: other (Gram stain and culture of left thigh abscess) Patient was transported to: PACU Patient's condition: stable
--- NOTE | 2023-10-22 14:19 | W.PM.PROGNOT ---
Date of Service Date of service: 10/22/23 Time of Service: 14:19 Assessment and Plan Assessment and plan (1) Elevated blood pressure reading in office without diagnosis of hypertension: Status: Acute (2) Obesity: Status: Chronic Qualifiers: Obesity type: due to excess calories Obesity classification: adult class 1 (BMI 30 - 34.9) Serious obesity comorbidity presence: without serious comorbidity Body mass index: BMI 33.0-33.9 Qualified Code(s): E66.09 - Other obesity due to excess calories; Z68.33 - Body mass index [BMI] 33.0-33.9, adult (3) Seasonal allergies: Status: Chronic (4) Cellulitis of left lower extremity: Status: Acute Assessment and plan: merropenum and clindamycin- abx -irrigated adn packed PT able to wt bare needs to have BM pulm toilet adn DVT & GI proph lactobacillus wound care cont IV abx for another 24 hrs d/c in am (5) Abscess of left lower extremity: Status: Acute Subjective Subjective Interval history since last seen: Pt is doing well. no headaches. No CP or SOB. no productive cough. no dysuria. no leg pain or swelling. no BM Exam Narrative Exam Narrative: L: CTA leg: less redness and swelling than yesterday, but still significant. wounds superior: 2cm deep .5x.5cm middle: 4cm deep .5x.5cm inferior: .5x.5x1cm deep Objective Last Vital Signs Temp 36.3 C L 10/22/23 11:12 Pulse 64 10/22/23 11:12 Resp 17 10/22/23 11:12 BP 113/71 10/22/23 11:12 Pulse Ox 94 10/22/23 11:12 Time Spent with Patient Time Spent with Patient: 25-34 minutes Time was spent: preparing to see the patient(eg.review tests), obtaining and/or reviewing separately otained hiistory, ordering medications,tests, procedures, referring, communicating with other health healthcare marketer, indepentently interpreting results, counseling the patient and care coordination
[2023-10-22 15:30] VITALS: BP 119/75; PULSE 78; RESP 18; TEMP 36.1; O2SAT 97
[2023-10-22] MEDS: Lactobacillus Acidophilus CAP 1 CAP PO (20:44)
[2023-10-22 22:41] VITALS: BP 114/68; PULSE 63; RESP 18; TEMP 36.7; O2SAT 97
[2023-10-23] MEDS: MEROPENEM 1 GM in Normal Saline 100 ML IVPB ×2 (02:00→10:01)
[2023-10-23] MEDS: VANCOMYCIN/WATER (PEG) 1.75 GM/350 ML BAG IVPB (02:31)
[2023-10-23] MEDS: Normal Saline Flush 10 ML SYR IVP ×3 (02:32→08:46)
[2023-10-23 03:59] VITALS: BP 103/68; PULSE 60; RESP 19; TEMP 36.9; O2SAT 95
[2023-10-23] MEDS: CLINDAMYCIN 900 MG/50 ML BAG 50 MG IVPB ×2 (04:07→12:00)
[2023-10-23 06:54] LABS: HCT 37.5 % (40.0-50.0); HGB 12.7 g/dL (13.5-17.5); MCH 30.2 pg (27.0-33.0); MCHC 33.9 % (32.0-36.0); MCV 89 fL (80-95); MPV 8.6 fL (8.0-11.0); Platelet Count 432 10^3/uL (130-400); RDW 11.7 % (11.8-14.1); RDW-SD 37.9 fL; WBC 9.37 10^3/uL (4.4-10.8)
[2023-10-23 07:23] LABS: Anion Gap 6.6 mmol/L (3-11); BUN 18 mg/dL (7-18); CO2 25.4 mmol/L (21.0-32.0); CREATININE 0.9 mg/dL (0.70-1.30); Calcium 9.2 mg/dL (8.5-10.1); Chloride 105 mmol/L (98-107); Estimated GFR 108.68 (mL/min/1.73m2); Glucose 96 mg/dL (74-106); Potassium 4.2 mmol/L (3.5-5.1); Sodium 137 mmol/L (136-145)
[2023-10-23 08:00] VITALS: BP 111/68; PULSE 78; RESP 18; TEMP 36.4; O2SAT 96
--- NOTE | 2023-10-23 08:37 | W.PM.PROGNOT ---
Date of Service Date of service: 10/23/23 Time of Service: 08:37 Assessment and Plan Assessment and plan (1) Cellulitis of left lower extremity: Status: Acute Assessment and plan: - Patient initially presented with failed outpatient therapy for left lower extremity cellulitis that was also determined to have left medial thigh abscess -He is now postop day 2 for incision and drainage -He had failed outpatient trial of amoxicillin and clindamycin prior to presenting -Has been on IV clindamycin, Merrem and Vanco since admission, will continue until abscess aspirate culture results (2) Seasonal allergies: Status: Chronic Assessment and plan: Continue outpatient medical therapy as needed. (3) Obesity: Status: Chronic Assessment and plan: Patient advised to lose weight. His usual weight is about 190 pounds. He could be more active. This may be increasing his risk for lower extremity edema and poor circulation. Qualifiers: Obesity type: due to excess calories Obesity classification: adult class 1 (BMI 30 - 34.9) Serious obesity comorbidity presence: without serious comorbidity Body mass index: BMI 33.0-33.9 Qualified Code(s): E66.09 - Other obesity due to excess calories; Z68.33 - Body mass index [BMI] 33.0-33.9, adult Subjective Subjective Interval history since last seen: Patient states that he is doing well today and understands we are continuing to wait for final culture results. His only request is that he receives pain medication prior to future wound dressing changes. Exam Narrative Exam Narrative: Well-appearing gentleman laying in bed in no acute distress, ANO x 4, heart rate regular rate and rhythm, lungs clear to auscultation bilaterally, abdomen soft, nontender, nondistended, left lower extremity bandaged from distal calf to about mid thigh with some visible areas of previously demarcated lines showing improvement of erythema Objective Last Vital Signs Temp 97.5 F L 10/23/23 08:00 Pulse 78 10/23/23 08:00 Resp 18 10/23/23 08:00 BP 111/68 10/23/23 08:00 Pulse Ox 96 10/23/23 08:00 Laboratory Results - last 24 hr 10/23/23 06:25 WBC 9.37 RBC 4.20 L Hgb 12.7 L Hct 37.5 L MCV 89 MCH 30.2 MCHC 33.9 RDW 11.7 L Plt Count 432 H MPV 8.6 Sodium 137 Potassium 4.2 Chloride 105 Carbon Dioxide 25.4 Anion Gap 6.6 BUN 18 Creatinine 0.9 Est GFR (CKD-EPI 2020) 108.68 Glucose 96 Calcium 9.2 Time Spent with Patient Time Spent with Patient: >50 minutes Time was spent: preparing to see the patient(eg.review tests), obtaining and/or reviewing separately otained hiistory, ordering medications,tests, procedures, referring, communicating with other health animal care service worker, indepentently interpreting results, counseling the patient and care coordination
[2023-10-23] MEDS: Enoxaparin 40 MG/0.4 ML SYR SC (08:46)
[2023-10-23] MEDS: Lactobacillus Acidophilus CAP 1 CAP PO (08:46)
[2023-10-23] MEDS: Omeprazole 20 MG CAPCR PO (08:46)
[2023-10-23] MEDS: Loratidine 10 MG TAB PO (08:47)
--- NOTE | 2023-10-23 10:10 | IN_ITS ---
PT Notes Visit Reasons: Cellulitis left leg Inpatient Physical Therapy Evaluation Date: October 23, 2023 Referring Doctor: Dr. Angelica Garcia PT Orders: PT CONSULT: Not urgent Precautions: Standard, activity to tolerance patient can be walking up to tolerance and full weightbearing, Patient Profile/Admitting Diagnosis: This is a 42-year-old gentleman who presented to the ED October 20, 2023 with minimal medical problems presenting with failed outpatient treatment for cellulitis left leg. He has had a previous infection in the same leg. He is overweight but not diabetic and has no history of trauma to the area. Was on Augmentin with clindamycin and will be admitted for IV antibiotic therapy including meropenem, vancomycin and clindamycin. He may have evidence of early involvement of the fascial plane though this is not clear on CT. he underwent surgery October 21, 2023 for abscess of left lower extremity. 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 Lives at home with in multilevel home with railing upon entry. Current Functional Limitations: None Equipment Owned/DME:None Subjective: I've been up walking in the room. Went to the bathroom a couple of times. My left knee is a little stiff. Objective: General Observation: Bandaged left LE mid thigh to mid salgado. IV in LUE Mental Status: Alert and orientated X3. Very pleasant. No acute distress. Pain: 2/10 ROM: Right Upper Extremity: WNL Left Upper Extremity: WNL Right Lower Extremity: WNL Left Lower Extremity: Lacks 10 degrees of left knee extension, flexes to 80 degrees limited due to bandage. and tightness reported in medial aspect of L knee. Strength: Right Upper Extremity: 5/5 throughout Left Upper Extremity: 5/5 throughout Right Lower Extremity: 5/5 throughout Left Lower Extremity: 5/5 hip flexion, seated hip abduction, seated hip adduction, knee flexion 4+/5, knee extension 4/5 Sensation: WNL in left foot and distal salgado. Bed Mobility/Transfers: Independent with all bed mobility Independent with all transftes, sit to stand, stand to sit. No assisted device needed. Gait: Ambulated 150 feet with standby assist no assistive device. Decreased knee extension at terminal swing decreased heel strike initial contact. Balance: Static Sitting: Good Dynamic Sitting: Good Static Standing: Good Dynamic Standing: Good Special Tests: Mobility Limitations Standardized Measure [facility] AM-PAC 6 clicks Basic Mobility Inpatient Short Form: Raw Score: 24 Standardized Score: [] CMS Score: 0% Informed Consent/Education: Patient instructed in purpose of PT consult and plan of care. Assessment: Patient is a 42 year old male referred to physical therapy services with the diagnosis of status post surgery secondary to abscess left lower extremity. The patient presents with clinical signs and symptoms consistent with above diagnosis. He presents with no limitations with functional ability, ambulation, transfers, has some mild limitation in knee range of motion secondary to surgical procedure and dressings. Patient in no need of formal physical therapy. Patient is assessed as a [id number] complexity based on the following: History: 42-year-old male with past medical history as indicated above Examination: Demonstrable no significant impairment in strength, balance, and mobility level. Presentation: Stable Decision Makin low complexity Goals: none needed Plan of Care/Treatment Plan: No formal PT required for this patient. [X] Home with no services [] Home with services [specify] [] Home with outpatient PT [] [] SNF for continued rehabilitation [] [] Online Advertising Director Care [] [] SNF versus LTC based on ability to participate and progress [] TREATMENT CODE/TIME: 24809 20 minutes 10:10-10:30 Thank you for this referral. Daryl Sims PT,DPT Please sign an return this page within 30 days if you agree with the above POC. Thank you! Physician Signature Date [facility] Disclaimer: This note was created using [employer] voice recognition software. It was reviewed for major content. However, there may be multiple small discrepancies and errors due to the voice recognition aspects of the software.
[2023-10-23] MEDS: MORPHine 2 MG/ML SYR IVP (10:30)
[2023-10-23] MEDS: Normal Saline 10 ML VIAL IJ (10:54)
--- NOTE | 2023-10-23 11:03 | PDOC.HHF2F ---
Home Health Referral Home Health Orders Clinical synopsis of why skilled professionals are needed: Dressing change and wound packing and wound monitoring Medical diagnosis necessitation home health referral: Staph infection with abscess x 3 left lower extremity Registered Nurse: Check all that apply Instruct on new or changed medication(s)/assess compliance: Ordered Assess for exacerbation of medical condition, instruct patient/caregivers on signs and symptoms to report for early detection: Ordered Assess wound for signs and symptoms of infection, instruct on wound care and/or provide skilled wound care consisting of: Wound packing of renal wound on left lower extremity daily for approximately 3 to 5 days. Or until wound is less than a centimeter deep. Currently 2 to 3 cm Home Bound Status Patient has a condition such that leaving home is medically contraindicated (Describe): Patient is homebound and cannot drive at this time. Describe why leaving home would require a considerable and taxing effort: Side effects from pain medication (sedation/drowsiness), Requires frequent rest periods and Safety Concerns: describe Encounter Date and Reason: I certify that a FTF encounter for this patient was performed on October 23, 2023 and that such encounter was related to the primary reason the patient requires home health services. The encounter was conducted in the following manner: By me as the certifying physician, OYSTER FLOATER, PA or By an inpatient physician, OYSTER FLOATER or PA during an inpatient stay who communicated findings to me, Certification And Authentication I certify that I composed the above information based on my clinical judgment relating to this patient's medical condition and, if applicable, clinical findings communicated to me by the NPP or inpatient physician who performed the FTF encounter. Name of Provider that will be monitoring home health services: Angelica Garcia
--- NOTE | 2023-10-23 11:14 | PGE_ITS ---
Date of Service Date of service: 10/23/23 Time of Service: 11:15 Assessment and Plan Assessment and plan (1) Elevated blood pressure reading in office without diagnosis of hypertension: Status: Acute (2) Obesity: Status: Chronic Qualifiers: Obesity type: due to excess calories Obesity classification: adult class 1 (BMI 30 - 34.9) Serious obesity comorbidity presence: without serious comorbidity Body mass index: BMI 33.0-33.9 Qualified Code(s): E66.09 - Other obesity due to excess calories; Z68.33 - Body mass index [BMI] 33.0-33.9, adult (3) Seasonal allergies: Status: Chronic (4) Cellulitis of left lower extremity: Status: Acute Assessment and plan: - Wound cultures were essentially sterile as he had been on clindamycin and Augmentin outpatient. Patient was on Augmentin and clindamycin as an outpatient orally. He was on meropenem and clindamycin IV and the infection. did not really get better until he was on vancomycin IV Will send him home on linezolid and p.o. This document was created with voice activated software and may contain errors. 25 mins spent in direct pt care and 20 in non face to face time (5) Abscess of left lower extremity: Status: Acute Subjective Subjective Interval history since last seen: Pt is doing well. no headaches. No CP or SOB. no productive cough. no dysur ia. no leg pain or swelling in right leg. He has not been up walking outside of his room. He is tolerating a regular diet and not having any diarrhea. His pain has been well-controlled and not requiring narcotics except for dressing changes. Exam Narrative Exam Narrative: Lungs are clear to auscultation Pulse shows normal sinus Wounds on his right leg: The most inferior wound is closed. The most superior wound is less than a centimeter deep in this wound does not need to be packed anymore. Just irrigated with saline daily. The middle wound is 0.5 x 0.5 cm in approximately 3 cm deep. This wound was irrigated and packed with silver alginate today. The redness is significantly decreased. Is well as the edema. Patient walked with PT with no significant concerns. He can weight-bear. He just has pain. Objective Last Vital Signs Temp 36.4 C L 10/23/23 08:00 Pulse 78 05/05/24 08:00 Resp 18 10/23/23 08:00 BP 111/68 10/23/23 08:00 Pulse Ox 96 10/23/23 08:00 Laboratory Results - last 24 hr 10/23/23 06:25 WBC 9.37 RBC 4.20 L Hgb 12.7 L Hct 37.5 L MCV 89 MCH 30.2 MCHC 33.9 RDW 11.7 L Plt Count 432 H MPV 8.6 Sodium 137 Potassium 4.2 Chloride 105 Carbon Dioxide 25.4 Anion Gap 6.6 BUN 18 Creatinine 0.9 Est GFR (CKD-EPI 2020) 108.68 Glucose 96 Calcium 9.2 Time Spent with Patient Time Spent with Patient: 25-34 minutes Time was spent: preparing to see the patient(eg.review tests), obtaining and/or reviewing separately otained hiistory, ordering medications,tests, procedures, referring, communicating with other health career center director, indepentently interpreting results, counseling the patient and care coordination
--- NOTE | 2023-10-23 11:31 | DSE_ITS ---
Date of service: 10/23/23 Time of Service: 11:31 DS: Diagnosis Discharge Diagnosis (1) Elevated blood pressure reading in office without diagnosis of hypertension: Status: Acute (2) Obesity: Status: Chronic (3) Seasonal allergies: Status: Chronic (4) Cellulitis of left lower extremity: Status: Acute (5) Abscess of left lower extremity: Status: Acute Discharge Plan Disposition Patient Disposition: Home Condition: Improving Discharge Details Reason For Visit: Cellulitis left leg Admit Date/Time: 10/21/23 00:31 Admit Provider: Sandor Arreola Attending Provider: Sandor Arreola Primary Care Provider: [facility] Course Hospital Course: see addendum Home Meds and New Rx's Prescriptions: New linezolid 600 mg tablet 600 mg PO Q12H 5 Days Qty: 10 0RF oxycodone 5 mg tablet 5 mg PO Q4H PRNQty: 10 0RF Rx Instructions: take 1 tab po 60 mins prior to dressing changes Continued fluticasone propionate [Flonase Allergy Relief] 50 mcg/actuation spray,suspension 1 spray intranasal DAILY PRN Rx Instructions: administer into each nostril loratadine [Claritin] 10 mg tablet 10 mg PO DAILY PRN omeprazole magnesium [Prilosec OTC] 20 MG tablet,delayed release (DR/EC) 20 mg PO DAILY@0730 PRN Patient Comments: Pt took it a couple of days ago but doesn't take it often Discontinued amoxicillin-pot clavulanate 875-125 mg tablet 1 tab PO BID Qty: 14 0RF Hold Instructions: Changed by Provider clindamycin HCl 300 mg capsule 300 mg PO QID 7 Days Qty: 28 0RF Discharge Instructions Additional Instructions: Keep an ice bag on the incision. 20 minutes on and 20 minutes off. Ice keeps the swelling down and swelling causes pain. Make sure you wrap the ice pack in a towel and don't apply directly to the skin. -No driving for 5 days or of you are taking narcotic pain medications. [facility]: [phone] -Follow-up with Dr. Garcia/Dr. Brink next week - Regular diet -yogurt daily while on antibiotics -no straining to move bowels -pain meds are very constipating: if you do not move your bowels daily take a dose of OTC Miralax -It is ok to shower. cover Left leg to shower -You may find that your appetite is smaller. Eat 3-6 small meals throughout the day. It is important to drink lots of water after surgery, 6-10 glasses a day. -We do want you up walking, at least 5-6 times per day. This is very important to prevent pneumonia and blood clots. You can climb stairs, take them slowly. -No lifting over 5 pounds or strenuous activity x1 week -You may find that you are very tired after surgery- this is normal. -please do not smoke for a minimum of 72 hours after surgery. -f/u w/ PCP in 2-3 weeks time regarding blood pressure -Home health will come and do packing for a week starting Tuesday -take oxycontin 60 mins prior to dressing changes. Wound Care Instruction Pain Control Use ice!? Ice keeps the swelling down and swelling is what causes pain.? Never apply ice directly to the skin.? Wrap it in a towel or cloth.? Apply ice 20 minutes on and 20 minutes off for pain control.? Use as needed. Take Tylenol 500 mg by mouth with food every 4 hours as needed for pain. Or ibuprofen 600 mg by mouth with food every 6 hours as needed for pain. ? Always wash your hands before touching your incision. ? Keep the incision clean, dry, and out of water, keep the incision out of water. ? Do not to pick at the scabs. Scabs help protect the wound. ? Check the incision site daily for pain, redness, drainage, swelling, or separation of the incision edges. ? Make sure any clothing that touches the incision is loose-fitting. This will prevent rubbing. If the incision is on the head, keep your child from wearing caps or other head coverings. These may rub against the incision. As your incision heals, the skin may appear pink or red. It may also feel slightly bumpy or raised. This is called a healing ridge. Over time, the color should fade and the raised skin will become less noticeable. When to seek medical care Call your healthcare provider right away if you have any of these: ? More pain, redness, swelling, bleeding, or foul-smelling discharge around the incision area ? Fever of 101?F (38.3?C) or higher, or as directed by your child's healthcare provider ? Shaking chills ? Vomiting or nausea that doesn?t go away ? Numbness, coldness, or tingling around the incision area, or changes in skin color ?[facility]: [phone] Activity:: see above Equipment/Supplies:: No Equipment Needed Diet:: As Tolerated DS: Summary Time Spent with Patient providing and/or coordinating discharge services: Less than 30 minutes Status at Discharge Functional status at discharge: independent ambulation Overall status at discharge: patient is back to baseline Mental Status: mental status grossly normal Speech and Movement: speech and movement normal Mood: congruent mood Affect: normal affect Quality:SDOH Health Related Social Needs: No Data to Display Exam Psych Mental Status: mental status grossly normal Speech and Movement: speech and movement normal Mood: congruent mood Affect: normal affect DS: Data Vitals/I&O Vitals and I&O: Vital Signs Temperature 36.4 C L 10/23/23 08:00 Temperature Source Tympanic 10/23/23 08:00 Pulse 78 10/23/23 08:00 Pulse Rhythm Regular 10/23/23 02:12 Respiratory Rate 18 10/23/23 08:00 Respiratory Effort Normal 10/22/23 19:28 Respiratory Depth Normal 10/23/23 02:12 Respiratory Pattern Normal 10/23/23 02:12 Blood Pressure 111/68 10/23/23 08:00 Blood Pressure Position Supine 10/21/23 00:42 Pulse Oximetry 96 10/23/23 08:00 Respiratory End-tidal CO2 33 10/21/23 15:03 Oxygen Delivery Method Room Air 10/23/23 08:00 Oxygen Flow Rate 0 10/23/23 08:00 Pain Level 0 10/23/23 08:46 Intake & Output 10/22/23 10/22/23 10/23/23 11:59 23:59 11:59 Intake Total 1100 / 1890 790 / 1890 100 / 100 Output Total 850 / 1550 700 / 1550 1400 / 1400 Balance 250 / 340 90 / 340 -1300 / -1300 Weight 107.955 kg Intake: IV 1100 / 1650 550 / 1650 100 / 100 Oral 240 / 240 Output: Urine 850 / 1550 700 / 1550 1400 / 1400 Other: Urine Color Yellow Yellow Yellow Urine Appearance Clear Cloudy Clear Urine Odor Normal Normal Voiding Methods Urinal Urinal Urinal Data Completed and Pending Labs on day of discharge: Labs from last 24 hours 10/23/23 10/23/23 12:00 06:25 WBC 9.37 RBC 4.20 L Hgb 12.7 L Hct 37.5 L MCV 89 MCH 30.2 MCHC 33.9 RDW 11.7 L Plt Count 432 H MPV 8.6 Sodium 137 Potassium 4.2 Chloride 105 Carbon Dioxide 25.4 Anion Gap 6.6 BUN 18 Creatinine 0.9 Est GFR (CKD-EPI 2020) 108.68 Glucose 96 Calcium 9.2 Random Vancomycin Pending Preliminary micro results at discharge 10/21/23 14:10 Abscess Culture - Preliminary Thigh - Left 10/21/23 14:10 Anaerobic Culture - Preliminary Thigh - Left 10/20/23 21:30 Wound Culture - Preliminary Leg - Left 10/20/23 22:01 Blood Culture - Preliminary Blood NO GROWTH 48 HOURS 10/20/23 22:53 Blood Culture - Preliminary Blood NO GROWTH 48 HOURS PFSH All Active Problems (Updated 10/22/23 @ 20:01 by Angelica Garcia DO) Abscess of left lower extremity (Acute) x3 Obesity (Chronic) Seasonal allergies (Chronic) Cellulitis of left leg (Acute) Cellulitis of left lower extremity (Acute) Cellulitis of left leg (Acute) Elevated blood pressure reading in office without diagnosis of hypertension (Acute) Family History Mother Personal history of malignant neoplasm PANCREATIC Father Alcohol use disorder Passed at age 61 Grandmother Personal history of malignant neoplasm PANCREATIC Stroke Social History Smoking/Tobacco Use Status: Former Tobacco Use tobacco type: smokeless tobacco Tobacco: How many years used: 15 Smokeless tobacco user: chewing tobacco Quit status: has quit before Second Hand Exposure: Yes Smoking risk assessment performed?: Yes Alcohol Intake: current Alcohol Intake frequency: a few times a week Alcohol type: beer Drug use: Never Household members: spouse and children Housing: house Pets and animals: Yes Pets and animals: dog(s) and other Do you think of yourself as: straight/heterosexual Current gender identity: male What is your relationship status?: How often do you talk on the phone with friends or family?: once per week How often do you get together with friends or relatives?: twice per week Do you belong to any clubs or organized social groups?: yes Panel score (0-1 are the most socially isolated patients): 3 What type of physical activity do you participate in: other 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
[2023-10-23 12:35] LABS: Vancomycin, Random 19.6 ug/mL
--- NOTE | 2023-10-23 16:10 | PDOC.CMDIS ---
Date of service: 10/23/23 Time of Service: 16:10 LACE Index Scoring Tool Questions: Length of Stay (in days): 2 Was the patient admitted via the E.D.?: Yes E.D. Visits: 4 Answers: Total Score: 9 Risk of Readmission: Low Risk Care Management Discharge Plan Reason for Hospitalization: Cellulites (left leg) Discharge Plan: Elder will discharge home with new home health orders for nursing to do wound care and dressing changes. he will follow up with his surgeon and plan of care and transport with family. Patient/Family Education Needs: Review discharge instructions, limitations, medications and plan to follow up with community providers. Discuss ask me three. Services Needed at Discharge: Home Health Care Services SDOH Health Related Social Needs: No Data to Display
== END 2023-10-23 13:35 | disposition home or self-care (01) | DRG 603 ==
LOC: ER 10-21 00:49 → MS 10-21 10:07
PROVIDERS: Family Medicine; Nurse Practitioner Family; Surgery; Admitting Provider Family Medicine; Emergency Provider Student in an Organized Health Care Education/Training Program; PCP Nurse Practitioner Family; Visit Provider Family Medicine
PROC: 0J9P0ZZ Drainage of Left Lower Leg Subcutaneous Tissue and Fascia, Open Approach (ICD-10-PCS; CPT 10061; principal; 2023-10-21 14:45)
DX: L02.416 Cutaneous abscess of left lower limb (principal); L03.116 Cellulitis of left lower limb; Z68.35 Body mass index [BMI] 35.0-35.9, adult; F17.220 Nicotine dependence, chewing tobacco, uncomplicated; J30.9 Allergic rhinitis, unspecified; E66.09 Other obesity due to excess calories; R03.0 Elevated blood-pressure reading, without diagnosis of hypertension
CPT/HCPCS: 10061; 00123; 36415; 80048; 80053; 85027; 85652; 87040; 96365; 96366; 96375; 97161; 99285; J1650; 73701; 80202; 83735; 85025; 86140; 87070; 87075; 87205; 99222; 99233; J0737; J1100; J1170; J1885; J2001; J2185; J2250; J2270; J2405; J2704; J3370; J3372; J3490

== ENCOUNTER 2024-11-06 10:56 | Emergency (ER) | payer BC, SELFPAY ==
[2024-11-06 11:00] VITALS: BP 154/89; PULSE 99; RESP 16; TEMP 36.5; O2SAT 99
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
[2024-11-06 12:12] VITALS: BP 145/96; PULSE 74; RESP 18; O2SAT 97
== END 2024-11-06 12:16 | disposition home or self-care (01) ==
LOC: ER 12:14
PROVIDERS: Emergency Provider Emergency Medicine; PCP Nurse Practitioner Family
DX: S01.01XA Laceration without foreign body of scalp, initial encounter (principal); Z87.891 Personal history of nicotine dependence; W20.8XXA Other cause of strike by thrown, projected or falling object, initial encounter; Y93.89 Activity, other specified; Y92.69 Other specified industrial and construction area as the place of occurrence of the external cause; Y99.0 Civilian activity done for income or pay
CPT/HCPCS: 12001; 99283